=== PATIENT | male | born 1930 | race Asian ===

== ENCOUNTER 2018-03-20 16:02 | Inpatient (IN) | payer BC ==
[~2018-03-20] VITALS: Ht 170.2 cm; Wt 58.1 kg
[2018-03-20] MEDS ORDERED: ATOR20TA38 PO (16:37)
[2018-03-20] MEDS ORDERED: ESCI10TA PO (16:38)
[2018-03-20] MEDS ORDERED: BRIM15DR2 BOTH EYES (16:38)
[2018-03-20] MEDS ORDERED: DORZ10DR6 BOTH EYES (16:38)
[2018-03-20] MEDS ORDERED: CITA20TA8 PO (16:38)
[2018-03-20] MEDS ORDERED: GUAI473L22 PO (16:46)
[2018-03-20] MEDS ORDERED: BYETTA10 SC (16:46)
[2018-03-20] MEDS ORDERED: MTF1000T PO (16:47)
[2018-03-20] MEDS ORDERED: LOSA25TA12 PO (16:47)
[2018-03-20] MEDS ORDERED: IBUP-1542 PO (16:47)
[2018-03-20] MEDS ORDERED: METO-336 PO (16:48)
[2018-03-20] MEDS ORDERED: PANT40TA4 PO (16:48)
[2018-03-20] MEDS ORDERED: MAXZ25 PO (16:49)
[2018-03-20] MEDS ORDERED: TRIA15CR55 TOP (16:49)
[2018-03-20] MEDS ORDERED: ASPIRIN 325 MG TAB PO ONE (18:30)
[2018-03-20] MEDS ORDERED: ONDANSETRON 4 MG INJ IV PRN ×2 (19:00→19:30)
[2018-03-20] MEDS ORDERED: ACETAMINOPHEN 325 MG TAB PO PRN ×2 (19:00→19:30)
[2018-03-20] MEDS ORDERED: NACL 0.9% 3 ML SYG IV SCH (19:30)
[2018-03-20] MEDS ORDERED: SENNA TAB PO PRN (19:30)
--- NOTE | 2018-03-20 19:49 | ERD ---
ER Documentation Chief Complaint Chief Complaint bib ra from home for multiple falls, weak, unable to communicate properly HPI Patient is a 87-year-old male with previous stroke, hypertension, and diabetes who presents with altered mental status. Please note the history and physical exam is limited secondary to the patient's mental status at this time. The patient was brought in by ambulance. The patient was "lethargic" per the . The patient has no focal weakness. Sugar was 252 by paramedics. The patient had a fall just 4 days ago and then fell 45 minutes ago as well. He denies pain. He is slow to respond. Upon review of old medical records this is the patient's first visit to the emergency department. ROS All systems reviewed and are negative except as per history of present illness. Medications Home Meds Reported Medications Triamterene/Hctz* (Maxzide (37.5-25)*) 1 Each Tablet, 1 EACH PO DAILY, #30 TAB 03/20/18 Triamcinolone Acetonide* (Kenalog*) 0.1%-15GM Cr, 1 APPLIC TOP BID, #1 TUB 03/20/18 Pantoprazole* (Pantoprazole*) 40 Mg Tablet.dr, 40 MG PO AC BREAKFAST, TAB 03/20/18 Metoprolol Succinate* (Toprol XL*) 100 Mg Tab.sr.24h, 100 MG PO DAILY, #30 TAB 03/20/18 Metformin* (Glucophage*) 1,000 Mg Tablet, 1000 MG PO BID, #60 TAB 03/20/18 Losartan Potassium* (Losartan Potassium*) 25 Mg Tablet, 25 MG PO DAILY, TAB 03/20/18 Ibuprofen* (Ibuprofen*) 600 Mg Tablet, 600 MG PO Q8 PRN for PAIN, TAB 03/20/18 Guaifenesin-Codeine Phosphate* (Guaifenesin* AC Cough Syrup) 473 Ml Liquid, 5-10 ML PO Q4H PRN for COUGH, ML 03/20/18 Exenatide (Byetta) 10 Mcg/0.04 Ml Pen.injctr, 10 MCG SC BID 03/20/18 Escitalopram Oxalate* (Lexapro*) 10 Mg Tablet, 10 MG PO DAILY, #30 TAB 03/20/18 Dorzolamide/Timolol* (Dorzolamide/Timolol*) 10 Ml Drops, 1 DROP BOTH EYES BID, #1 EA 03/20/18 Citalopram Hydrobromide* (Citalopram Hydrobromide*) 20 Mg Tablet, 20 MG PO DAILY, #30 TAB 03/20/18 Brimonidine Tartrate* (Alphagan P*) 0.1%-15 Ml Opht Drops, 1 DROP BOTH EYES DAILY, #1 EA 03/20/18 Atorvastatin Calcium* (Atorvastatin Calcium*) 20 Mg Tablet, 20 MG PO QHS, #30 TAB 03/20/18 Allergies Allergies: Coded Allergies: No Known Allergy (Unverified , 03/20/18) PMhx/Soc Hx Cardiac Disorders: Yes (htn) Hx Psychiatric Problems: Yes (depression) Hx Miscellaneous Medical Probl: Yes (DM) Hx Alcohol Use: No Hx Substance Use: No Hx Tobacco Use: No Smoking Status: Never smoker FmHx Unable to obtain Physical Exam Vitals Vital Signs Date Temp Pulse Resp B/P (MAP) Pulse Ox O2 O2 Flow FiO2 Time Delivery Rate 03/20/18 98.7 71 14 145/61 100 Room Air 16:09 (89) 03/20/18 98.7 67 14 141/65 100 16:09 (90) Physical Exam Const: Mild distress Head: Atraumatic Eyes: Normal Conjunctiva ENT: Normal External Ears, Nose and Mouth. Neck: Full range of motion. No meningismus. Resp: Clear to auscultation bilaterally Cardio: Regular rate and rhythm, no murmurs Abd: Soft, non tender, non distended. Normal bowel sounds Skin: Pale skin Back: No midline or flank tenderness Ext: No cyanosis, or edema Neur: Awake but slow to respond to questions, strength is equal in all 4 extremities Result Diagram: 03/20/18 1625 03/20/18 1625 Results 24 hrs Laboratory Tests Test 03/20/18 16:25 03/20/18 16:26 White Blood Count 5.2 10^3/ul Red Blood Count 4.57 10^6/ul Hemoglobin 10.7 g/dl Hematocrit 34.3 % Mean Corpuscular Volume 75.1 fl Mean Corpuscular Hemoglobin 23.4 pg Mean Corpuscular Hemoglobin Concent 31.2 g/dl Red Cell Distribution Width 17.0 % Platelet Count 291 10^3/UL Mean Platelet Volume 9.5 fl Immature Granulocytes % 0.400 % Neutrophils % 67.6 % Lymphocytes % 19.0 % Monocytes % 8.9 % Eosinophils % 3.3 % Basophils % 0.8 % Nucleated Red Blood Cells % 0.0 /100WBC Immature Granulocytes # 0.020 10^3/ul Neutrophils # 3.5 10^3/ul Lymphocytes # 1.0 10^3/ul Monocytes # 0.5 10^3/ul Eosinophils # 0.2 10^3/ul Basophils # 0.0 10^3/ul Nucleated Red Blood Cells # 0.0 10^3/ul Sodium Level 139 mmol/L Potassium Level 4.3 mmol/L Chloride Level 102 mmol/L Carbon Dioxide Level 31 mmol/L Anion Gap 6 Blood Urea Nitrogen 16 mg/dl Creatinine 0.97 mg/dl Est Glomerular Filtrat Rate mL/min mL/min Glucose Level 211 mg/dl Calcium Level 9.7 mg/dl Troponin I 0.054 ng/ml Ethyl Alcohol Level < 10.0 mg/dl Prothrombin Time 13.0 Sec Prothrombin Time Ratio 1.0 INR International Normalized Ratio 0.97 Activated Partial Thromboplast Time 27.0 Sec Current Medications Medications Dose Sig/Shauna Start Time Status Last (Trade) Ordered Route PRN Stop Time Admin Dose Reason Admin Aspirin 325 mg ONCE ONCE 03/20/18 DC 03/20/18 (Aspirin) PO 18:30 18:44 03/20/18 18:31 Ondansetron 4 mg ER BRIDGE 03/20/18 HCl (Zofran PRN IV 19:00 Inj) NAUSEA AND/OR 03/21/18 VOMITING 18:59 650 mg ER BRIDGE 03/20/18 Acetaminophen PRN PO MILD 19:00 (Tylenol PAIN(1-3)OR 03/21/18 Tab) ELEVATED TEMP 18:59 IV Flush 3 ml PER 03/20/18 (NS 3 ml) PROTOCOL IV 19:30 Ondansetron 4 mg Q6H PRN 03/20/18 HCl (Zofran IV NAUSEA 19:30 Inj) AND/OR VOMITING 650 mg Q6H PRN 03/20/18 Acetaminophen PO PAIN 19:30 (Tylenol LEVEL 1-3 OR Tab) FEVER 40 mg DAILY@06 03/21/18 Pantoprazole PO 06:00 (Protonix Tab) Senna 2 tab BID PRN 03/20/18 UNV (Senokot) PO 19:30 CONSTIPATION 20 mg QHS PO 03/20/18 UNV Atorvastatin 21:00 Calcium (Lipitor) Brimonidine 1 drop DAILY BOTH 03/21/18 UNV Tartrate EYES 09:00 (Alphagan P 0.1%) Citalopram 20 mg DAILY PO 03/21/18 UNV Hydrobromide 09:00 (Celexa) 1 drop BID BOTH 03/20/18 UNV Dorzolamide/ EYES 21:00 Timolol (Cosopt) Metformin 1,000 mg BID PO 03/20/18 UNV HCl 21:00 (Glucophage) Metoprolol 100 mg DAILY PO 03/21/18 UNV Succinate 09:00 (Toprol Xl) 1 tab DAILY PO 03/21/18 UNV Triamterene/H 09:00 CTZ (Maxzide-25) Diagnostic 1 ea AC MEALS AND 03/20/18 UNV Test (Pha) BEDTIME XX 21:00 (Accu-Chek) Procedures/MDM CT brain read by radiology. EKG read by me: Rate/Rhythm: First-degree AV block at a rate of 65 Intervals: Prolonged WA interval Impression: First-degree block without ischemia Patient is an 87-year-old male presents with falls and altered mental status. Laboratory studies were basically normal. CT scan shows no sign of skull fracture or bleed or mass. EKG shows a first-degree block. There is no obvious focal weakness but the patient was given aspirin after he passed a swallow evaluation in case this ends up being an acute stroke. He would be outside the window for TPA given that symptoms started 4 days ago with a fall. The patient will be admitted to the care of Dr. Kumari from the panel team to a telemetry bed. Departure Diagnosis: Primary Impression: Encephalopathy Additional Impression: Fall Encounter type: initial encounter Qualified Codes: W19.XXXA - Unspecified fall, initial encounter Condition: BRINDA Townsend MD Mar 20, 2018 19:49
--- NOTE | 2018-03-20 20:00 | HP ---
Date/Time of Note Date/Time of Note DATE: 03/20/18 TIME: 19:33 Assessment/Plan VTE Prophylaxis Pharmacological prophylaxis: NA/contraindicated Pharm contraindication: low risk/ambulating Lines/Catheters IV Catheter Type (from Nrsg): Saline Lock Assessment/Plan Assessment/Plan Frail 87 yo man history of dementia, depression, CKD, diabetes presents with frequent falls. #Frequent falls - Per history it is unclear if these episodes are associated with syncope. - UA to rule out UTI - Will get MRI (at family's request) to rule out stroke - Otherwise this likely just represents the progressive course of dementia and age-related changes. - Also will consult social work to reach out to patient's caregiver, his , to determine if she is able to take him home or if she is overwhelmed. #Elevated troponin - Not associated with chest pain - Some lateral T wave abnormalities on EKG - Will continue to trend. - In the setting of CKD expect elevated trop. #Diabetes - Low risk of lactic acidosis... will continue home metformin. #CKD III - Cr 0.97 on admission - Renally dose meds, no nephrotoxins. #HTN - Cont home antihypertensives #Dyslipidemia - Cont home statin #PUD - Cont PPI Result Diagram: 03/20/18 1625 03/20/18 1625 HPI/ROS Admit Date/Time Admit Date/Time Mar 20, 2018 Hx of Present Illness Mr. Griffin is an 87 yo man with history of NIDDM, dementia, HTN who presents with frequent falls. History taken per son and [id number] at bedside; patient is confused, disoriented, and slow to answer questions. This morning the patient fell when getting out of bed and was unable to get up, even with his 's help. He didn't lose consciousness or strike his head. The day prior he was very alert and lucid; and ambulating without assistance on his walker. Earlier this week, Wednesday (4 days [employer]) he fell when walking to answer the door; struck his head firmly against the door then slid to the ground. The patient lives at home with his . He has advanced dementia and has very poor function. For the past six months he stays in bed more than half the day. He has urinary incontinence and uses diapers, although usually can ambulate to the bathroom to have bowel movements. He cannot prepare food but can eat food brought to him with no dysphagia to solids or thin liquids. The patient is often confused but has never failed to recognize family members. He cannot dress or bathe himself independently. A home health nurse comes once per week. The son reports that the patient's has reported feeling overwhelmed caring for the patient, but the son is resistant to put the patient in a SNF. There is a signed advance directive in the chart naming his Felecia to be his medical decisionmaker. In the ED, patient arrived afebrile, vital signs stable. Labs unremarkable except for elevated glucose to 200s. CT head with atrophy, nothing acute. EKG has 1st degree AV block and T wave inversion in lateral leads. ROS The patient denies headache, chest pain, palpitations. History is very limited. PMH/Family/Social Past Medical History CKD stage III glaucoma macular degeneration Diabetes Depression Dementia Medications Current Medications Ondansetron HCl (Zofran Inj) 4 mg ER BRIDGE PRN IV NAUSEA AND/OR VOMITING; Start 03/20/18 at 19:00; Stop 03/21/18 at 18:59 Acetaminophen (Tylenol Tab) 650 mg ER BRIDGE PRN PO MILD PAIN(1-3)OR ELEVATED TEMP; Start 03/20/18 at 19:00; Stop 03/21/18 at 18:59 IV Flush (NS 3 ml) 3 ml PER PROTOCOL IV ; Start 03/20/18 at 19:30; Status UNV Ondansetron HCl (Zofran Inj) 4 mg Q6H PRN IV NAUSEA AND/OR VOMITING; Start 03/20/18 at 19:30; Status UNV Acetaminophen (Tylenol Tab) 650 mg Q6H PRN PO PAIN LEVEL 1-3 OR FEVER; Start 03/20/18 at 19:30; Status UNV Pantoprazole (Protonix Tab) 40 mg DAILY@06 PO ; Start 03/21/18 at 06:00; Status UNV Senna (Senokot) 2 tab BID PRN PO CONSTIPATION; Start 03/20/18 at 19:30; Status UNV Coded Allergies: No Known Allergy (Unverified , 03/20/18) Past Surgical History Partial gastrectomy for severe peptic ulcer disease >20 years ago Social History Patient is a former transportation engineer. Alcohol Use: rarely Smoking Status: Never smoker Drug Use: other (son gives him a CBD/THC vape pen for appetite stimulation. This has been for 6 months. ) Exam/Review of Systems Vital Signs Vitals Vital Signs Date Temp Pulse Resp B/P (MAP) Pulse Ox O2 O2 Flow FiO2 Time Delivery Rate 03/20/18 98.7 71 14 145/61 100 Room Air 16:09 (89) Exam Exam Gen: Frail appearing man lying in bed in no acute distress. Eyes: R pupil 1 mm, L pupil 3mm, both nonreactive. EOMI. No scleral icterus. HEENT: Clear oropharynx. Dentures loose. Neck: No lymphadenopathy, no JVD Card: Regular rate and ryhthm, no murmurs Pulm: Clear to auscultation bilaterally Abd: Soft, nontender, nondistended. Ext: No cyanosis/clubbing/edema. No ulcers. Good peripheral pulses. NEURO Orientation: Patient oriented to self, son at bedside, month. Disoriented to location, year, and day. Pupillary changes as above. Poor hearing bilaterally. Otherwise CN2-12 grossly intact. Strength 4/5 throughout. Sensations to light touch intact throughout. SHELIA BRIGGS MD Mar 20, 2018 19:47
[2018-03-20] MEDS ORDERED: GLUCOSE GEL 15 GRAM TUBE BUCCAL PRN (20:30)
[2018-03-20] MEDS ORDERED: GLUCOSE GEL 15 GRAM TUBE PO PRN ×2 (20:30)
[2018-03-20] MEDS ORDERED: DEXTROSE 50% 50 ML SYRINGE IV PRN ×2 (20:30)
[2018-03-20] MEDS ORDERED: GLUCAGON 1 MG INJ IM PRN (20:30)
[2018-03-20 20:36] VITALS: PULSE 72
[2018-03-20 21:00] VITALS: Ht 170.2 cm; Wt 58.1 kg
[2018-03-20] MEDS: ACCU-CHEK XX SCH (21:00)
[2018-03-20 21:20] VITALS: BP 172/75; PULSE 63; RESP 18
[2018-03-20] MEDS ORDERED: hydrALAzine 20 MG INJ IV PRN (21:30)
[2018-03-20] MEDS: ATORVASTATIN 20 MG TAB PO SCH (21:52)
[2018-03-20] MEDS: DORZOLAMIDE/TIMOLOL 10 ML OPH BOTH EYES SCH (21:52)
[2018-03-20 23:00] VITALS: BP 143/65; PULSE 78; RESP 18
[2018-03-21] VITALS (11 sets, daily range): BP systolic 116–157; BP diastolic 60–73; PULSE 63–81; RESP 16–18
[2018-03-21] MEDS: PANTOPRAZOLE (EC) 40 MG TAB PO SCH (05:25)
[2018-03-21] MEDS: ACCU-CHEK XX SCH ×4 (07:40→21:00)
[2018-03-21] MEDS: metFORMIN 500 MG TAB PO SCH ×2 (07:55→17:18)
[2018-03-21] MEDS: CITALOPRAM 20 MG TAB PO SCH (08:08)
[2018-03-21] MEDS: METOPROLOL (XL) 100 MG TAB PO SCH (08:09)
[2018-03-21] MEDS: TRIAMTERENE/HCTZ (37.5/25) TAB PO SCH (08:10)
[2018-03-21] MEDS: BRIMONIDINE 0.1% 5 ML OPH BOTH EYES SCH (08:11)
[2018-03-21] MEDS: DORZOLAMIDE/TIMOLOL 10 ML OPH BOTH EYES SCH ×2 (08:11→22:24)
[2018-03-21] MEDS: MEMANTINE 5 MG TAB PO SCH (13:54)
[2018-03-21] MEDS: DONEPEZIL 5 MG TAB PO SCH (13:54)
--- NOTE | 2018-03-21 16:30 | PN ---
Date/Time of Note Date/Time of Note DATE: 03/21/18 TIME: 16:24 Assessment/Plan VTE Prophylaxis [place] [facility] [place]: 4 SCD applied [place] [facility] [place] Yes Pharmacological prophylaxis: NA/contraindicated Pharm contraindication: other Lines/Catheters [facility] Saline Lock Urinary Cath still in place: No Assessment/Plan Assessment/Plan #Frequent falls likely secondary to progressive dementia - Per history it appears that falls are not associated with syncope -No evidence of infection -Follow-up on MRI of the brain -Rehab evaluation #Progressive dementia -Patient has no formal diagnosis of dementia but based on history and progressive symptoms patient does have evidence of dementia -Start Namenda and Aricept #Urinary incontinence likely secondary to dementia -Urology consultation obtained -Ultrasound of the kidneys and bladder scan for PVR #Elevated troponin-stable - Not associated with chest pain - Some lateral T wave abnormalities on EKG - In the setting of CKD expect elevated trop. #Diabetes - Low risk of lactic acidosis... will continue home metformin. #CKD III - Cr 0.97 on admission - Renally dose meds, no nephrotoxins. #HTN - Cont home antihypertensives #Dyslipidemia - Cont home statin #PUD - Cont PPI Prophylaxis: SCDs DC planning: Anticipate DC to inpatient rehab in 1-2 days Result Diagram: 03/21/18 0509 03/21/18 0510 Results 24hrs Laboratory Tests Test 03/20/18 16:25 03/20/18 16:26 03/20/18 21:50 03/20/18 22:04 White Blood 5.2 Count Red Blood Count 4.57 L Hemoglobin 10.7 L Hematocrit 34.3 L Mean Corpuscular 75.1 L Volume Mean Corpuscular 23.4 L Hemoglobin Mean Corpuscular 31.2 L Hemoglobin Natalia nt Red Cell 17.0 H Distribution Width Platelet Count 291 Mean Platelet 9.5 Volume Immature 0.400 Granulocytes % Neutrophils % 67.6 Lymphocytes % 19.0 Monocytes % 8.9 Eosinophils % 3.3 Basophils % 0.8 Nucleated Red 0.0 Blood Cells % Immature 0.020 Granulocytes # Neutrophils # 3.5 Lymphocytes # 1.0 Monocytes # 0.5 Eosinophils # 0.2 Basophils # 0.0 Nucleated Red 0.0 Blood Cells # Sodium Level 139 Potassium Level 4.3 Chloride Level 102 Carbon Dioxide 31 Level Anion Gap 6 Blood Urea 16 Nitrogen Creatinine 0.97 Est Glomerular Filtrat Rate mL/min Glucose Level 211 Calcium Level 9.7 Troponin I 0.054 0.064 Ethyl Alcohol < 10.0 H Level Prothrombin Time 13.0 Prothrombin Time 1.0 Ratio INR 0.97 International Normalized Ratio Activated 27.0 Partial Thrombop last Time Bedside Glucose 181 Test 03/21/18 05:09 03/21/18 05:10 03/21/18 07:36 03/21/18 11:26 White Blood 6.0 Count Red Blood Count 4.56 L Hemoglobin 10.7 L Hematocrit 33.5 L Mean Corpuscular 73.5 L Volume Mean Corpuscular 23.5 L Hemoglobin Mean Corpuscular 31.9 L Hemoglobin Natalia nt Red Cell 17.2 H Distribution Width Platelet Count 272 Mean Platelet 9.7 Volume Immature 0.300 Granulocytes % Neutrophils % 68.1 Lymphocytes % 19.3 Monocytes % 8.7 Eosinophils % 2.8 Basophils % 0.8 Nucleated Red 0.0 Blood Cells % Immature 0.020 Granulocytes # Neutrophils # 4.1 Lymphocytes # 1.2 Monocytes # 0.5 Eosinophils # 0.2 Basophils # 0.1 Nucleated Red 0.0 Blood Cells # Hemoglobin A1c 9.9 H Sodium Level 143 Potassium Level 4.1 Chloride Level 102 Carbon Dioxide 33 H Level Anion Gap 8 Blood Urea 17 Nitrogen Creatinine 0.92 Est Glomerular Filtrat Rate mL/min Glucose Level 224 H Calcium Level 9.5 Phosphorus Level 3.6 Magnesium Level 2.0 Total Bilirubin 0.3 Direct Bilirubin 0.00 Indirect 0.3 Bilirubin Aspartate Amino 18 Transf (AST/SGOT ) Alanine 24 Aminotransferase (ALT/SGPT) Alkaline 91 Phosphatase Troponin I 0.065 Total Protein 6.2 Albumin 3.7 Globulin 2.50 Albumin/Globulin 1.48 Ratio Triglycerides 161 H Level Cholesterol 163 Level LDL Cholesterol, 83 Calculated HDL Cholesterol 48 Cholesterol/HDL 3.3 Ratio Thyroid 1.650 Stimulating Hormone (TSH) Bedside Glucose 224 H 192 Subjective 24 Hr Interval Summary Constitutional: no complaints Exam/Review of Systems Vital Signs Vitals Vital Signs Date Temp Pulse Resp B/P (MAP) Pulse Ox O2 O2 Flow FiO2 Time Delivery Rate 03/21/18 98.9 64 16 116/64 97 15:27 (81) 03/21/18 Room Air 04:04 Intake and Output 03/20/18 03/20/1818 1414:59 22:59 06:59 IntakeIntake Total 300 ml OutputOutput Total 700 ml BalanceBalance -400 ml Exam Constitutional: alert Respiratory: clear to auscultation Cardiovascular: regular rate and rhythm Gastrointestinal: soft; No distended Musculoskeletal: nl extremities to inspection Medications Medications Current Medications IV Flush (NS 3 ml) 3 ml PER PROTOCOL IV ; Start 03/20/18 at 19:30 Ondansetron HCl (Zofran Inj) 4 mg Q6H PRN IV NAUSEA AND/OR VOMITING; Start 03/20/18 at 19:30 Acetaminophen (Tylenol Tab) 650 mg Q6H PRN PO PAIN LEVEL 1-3 OR FEVER; Start 03/20/18 at 19:30 Pantoprazole (Protonix Tab) 40 mg DAILY@06 PO Last administered on 03/21/18at 05:25; Admin Dose 40 MG; Start 03/21/18 at 06:00 Senna (Senokot) 2 tab BID PRN PO CONSTIPATION; Start 03/20/18 at 19:30 Atorvastatin Calcium (Lipitor) 20 mg QHS PO Last administered on 03/20/18at 21:52; Admin Dose 20 MG; Start 03/20/18 at 21:00 Brimonidine Tartrate (Alphagan P 0.1%) 1 drop DAILY BOTH EYES Last administered on 03/21/18at 08:11; Admin Dose 1 DROP; Start 03/21/18 at 09:00 Citalopram Hydrobromide (Celexa) 20 mg DAILY PO Last administered on 03/21/18at 08:08; Admin Dose 20 MG; Start 03/21/18 at 09:00 Dorzolamide/ Timolol (Cosopt) 1 drop BID BOTH EYES Last administered on 03/21/18at 08:11; Admin Dose 1 DROP; Start 03/20/18 at 21:00 Metformin HCl (Glucophage) 1,000 mg BID WITH MEALS PO Last administered on 03/21/18at 07:55; Admin Dose 1,000 MG; Start 03/21/18 at 08:00 Metoprolol Succinate (Toprol Xl) 100 mg DAILY PO Last administered on 03/21/18at 08:09; Admin Dose 100 MG; Start 03/21/18 at 09:00 Triamterene/HCTZ (Maxzide-25) 1 tab DAILY PO Last administered on 03/21/18at 08:10; Admin Dose 1 TAB; Start 03/21/18 at 09:00 Diagnostic Test (Pha) (Accu-Chek) 1 ea AC MEALS AND BEDTIME XX Last administered on 03/21/18at 11:32; Admin Dose 1 EA; Start 03/20/18 at 21:00 Miscellaneous Information 1 ea NOTE XX ; Start 03/20/18 at 20:30 Glucose (Glutose) 15 gm Q15M PRN PO DECREASED GLUCOSE; Start 03/20/18 at 20:30 Glucose (Glutose) 22.5 gm Q15M PRN PO DECREASED GLUCOSE; Start 03/20/18 at 20:30 Dextrose (D50w Syringe) 25 ml Q15M PRN IV DECREASED GLUCOSE; Start 03/20/18 at 20:30 Dextrose (D50w Syringe) 50 ml Q15M PRN IV DECREASED GLUCOSE; Start 03/20/18 at 20:30 Glucagon (Glucagen) 1 mg Q15M PRN IM DECREASED GLUCOSE; Start 03/20/18 at 20:30 Glucose (Glutose) 15 gm Q15M PRN BUCCAL DECREASED GLUCOSE; Start 03/20/18 at 20:30 Hydralazine HCl (Apresoline) 5 mg Q4H PRN IV ELEVATED BLOOD PRESSURE Last administered on 03/20/18at 21:52; Admin Dose 5 MG; Start 03/20/18 at 21:30 Donepezil HCl (Aricept) 5 mg DAILY PO Last administered on 03/21/18at 13:54; Admin Dose 5 MG; Start 03/21/18 at 13:30 Memantine (Namenda) 5 mg DAILY PO Last administered on 03/21/18at 13:54; Admin Dose 5 MG; Start 03/21/18 at 13:30 BRENTON GAYLE Mar 21, 2018 16:30
--- NOTE | 2018-03-21 18:23 | CONS ---
Date/Time of Note Date/Time of Note DATE: 03/21/18 TIME: 18:13 Assessment/Plan Assessment/Plan Assessment/Plan 87 year old male fell when getting out of bed and was unable to get up, even with his 's help. He didn't lose consciousness or strike his head. The day prior to admission he was very alert and lucid; and ambulating without assistance using his walker.Last Wednesday (4 days [employer]) he fell when walking to answer the door; struck his head firmly against the door then slid to the ground. He lives at home with his . He has advanced dementia and has very poor function. For the past six months he has been staying in bed more than half the day. He has urinary incontinence and uses diapers, he does have nocturia about 3-4 times and tries to use a urinal at home but sometimes the urine comes out before he could use the urinal. During the day he urinates every 3 hours and he tries to hold his urine. He denies any dysuria and there is no hematuria. Although usually can ambulate to the bathroom to have bowel movements. The patient is often confused but has never failed to recognize family members. He cannot dress or bathe himself independently. A home health nurse comes once per week. The son reports that the patient's has reported feeling overwhelmed caring for the patient, but the son is resistant to put the patient in a SNF. A urology consult was requested because of the urinary incontinence. Impression: Urinary urgency and urgency incontinence. Prostate is not large. The incontinence is probably related to him not using the urinal all the time and that could be related to his dementia. We will check the ultrasound of the kidney and pelvic ultrasound to make sure there is no urinary retention or overflow incontinence. Result Diagram: 03/21/18 0509 03/21/18 0510 Results 24hrs Laboratory Tests Test 03/20/18 21:50 03/20/18 22:04 03/21/18 05:05 03/21/18 05:09 Bedside Glucose 181 Troponin I 0.064 Iron Level 29 L Total Iron 379 Binding Capacity Percent Iron 8 L Saturation White Blood 6.0 Count Red Blood Count 4.56 L Hemoglobin 10.7 L Hematocrit 33.5 L Mean Corpuscular 73.5 L Volume Mean Corpuscular 23.5 L Hemoglobin Mean Corpuscular 31.9 L Hemoglobin Natalia nt Red Cell 17.2 H Distribution Width Platelet Count 272 Mean Platelet 9.7 Volume Immature 0.300 Granulocytes % Neutrophils % 68.1 Lymphocytes % 19.3 Monocytes % 8.7 Eosinophils % 2.8 Basophils % 0.8 Nucleated Red 0.0 Blood Cells % Immature 0.020 Granulocytes # Neutrophils # 4.1 Lymphocytes # 1.2 Monocytes # 0.5 Eosinophils # 0.2 Basophils # 0.1 Nucleated Red 0.0 Blood Cells # Hemoglobin A1c 9.9 H Test 03/21/18 05:10 03/21/18 07:36 03/21/18 11:26 03/21/18 17:16 Sodium Level 143 Potassium Level 4.1 Chloride Level 102 Carbon Dioxide 33 H Level Anion Gap 8 Blood Urea 17 Nitrogen Creatinine 0.92 Est Glomerular Filtrat Rate mL/min Glucose Level 224 H Calcium Level 9.5 Phosphorus Level 3.6 Magnesium Level 2.0 Total Bilirubin 0.3 Direct Bilirubin 0.00 Indirect 0.3 Bilirubin Aspartate Amino 18 Transf (AST/SGOT ) Alanine 24 Aminotransferase (ALT/SGPT) Alkaline 91 Phosphatase Troponin I 0.065 Total Protein 6.2 Albumin 3.7 Globulin 2.50 Albumin/Globulin 1.48 Ratio Triglycerides 161 H Level Cholesterol 163 Level LDL Cholesterol, 83 Calculated HDL Cholesterol 48 Cholesterol/HDL 3.3 Ratio Thyroid 1.650 Stimulating Hormone (TSH) Bedside Glucose 224 H 192 146 Consultation Date/Type/Reason Admit Date/Time Mar 20, 2018 Date of Consultation: Mar 21, 2018 Type of Consult Urology Reason for Consultation Urinary incontinence Requesting Provider: BRENTON GAYLE of Present Illness 87 year old male fell when getting out of bed and was unable to get up, even with his 's help. He didn't lose consciousness or strike his head. The day prior to admission he was very alert and lucid; and ambulating without assistance using his walker.Last Wednesday (4 days [employer]) he fell when walking to answer the door; struck his head firmly against the door then slid to the ground. He lives at home with his . He has advanced dementia and has very poor function. For the past six months he has been staying in bed more than half the day. He has urinary incontinence and uses diapers, he does have nocturia about 3-4 times and tries to use a urinal at home but sometimes the urine comes out before he could use the urinal. During the day he urinates every 3 hours and he tries to hold his urine. He denies any dysuria and there is no hematuria. Although usually can ambulate to the bathroom to have bowel movements. The patient is often confused but has never failed to recognize family members. He cannot dress or bathe himself independently. A home health nurse comes once per week. The son reports that the patient's has reported feeling overwhelmed caring for the patient, but the son is resistant to put the patient in a SNF. A urology consult was requested because of the urinary incontinence. Constitutional: other (Patient is awake, slow responding to questions and weak) Eyes: no complaints ENT: no complaints Respiratory: no complaints Cardiovascular: No chest pain Gastrointestinal: no complaints Genitourinary: other (As per history of present illness. Urinary incontinence) Musculoskeletal: other (Generalized weakness) Skin: no complaints Neurologic: no complaints Psychological: other (Dementia) Past Medical History Medical History: diabetes, high cholesterol, hypertension, peptic ulcer disea se, renal disease Medications Current Medications IV Flush (NS 3 ml) 3 ml PER PROTOCOL IV ; Start 03/20/18 at 19:30 Ondansetron HCl (Zofran Inj) 4 mg Q6H PRN IV NAUSEA AND/OR VOMITING; Start 03/20/18 at 19:30 Acetaminophen (Tylenol Tab) 650 mg Q6H PRN PO PAIN LEVEL 1-3 OR FEVER; Start 03/20/18 at 19:30 Pantoprazole (Protonix Tab) 40 mg DAILY@06 PO Last administered on 03/21/18at 05:25; Admin Dose 40 MG; Start 03/21/18 at 06:00 Senna (Senokot) 2 tab BID PRN PO CONSTIPATION; Start 03/20/18 at 19:30 Atorvastatin Calcium (Lipitor) 20 mg QHS PO Last administered on 03/20/18at 21:52; Admin Dose 20 MG; Start 03/20/18 at 21:00 Brimonidine Tartrate (Alphagan P 0.1%) 1 drop DAILY BOTH EYES Last administered on 03/21/18at 08:11; Admin Dose 1 DROP; Start 03/21/18 at 09:00 Citalopram Hydrobromide (Celexa) 20 mg DAILY PO Last administered on 03/21/18at 08:08; Admin Dose 20 MG; Start 03/21/18 at 09:00 Dorzolamide/ Timolol (Cosopt) 1 drop BID BOTH EYES Last administered on 03/21/18at 08:11; Admin Dose 1 DROP; Start 03/20/18 at 21:00 Metformin HCl (Glucophage) 1,000 mg BID WITH MEALS PO Last administered on 03/21/18at 17:18; Admin Dose 1,000 MG; Start 03/21/18 at 08:00 Metoprolol Succinate (Toprol Xl) 100 mg DAILY PO Last administered on 03/21/18at 08:09; Admin Dose 100 MG; Start 03/21/18 at 09:00 Triamterene/HCTZ (Maxzide-25) 1 tab DAILY PO Last administered on 03/21/18at 08:10; Admin Dose 1 TAB; Start 03/21/18 at 09:00 Diagnostic Test (Pha) (Accu-Chek) 1 ea AC MEALS AND BEDTIME XX Last administered on 03/21/18at 17:18; Admin Dose 1 EA; Start 03/20/18 at 21:00 Miscellaneous Information 1 ea NOTE XX ; Start 03/20/18 at 20:30 Glucose (Glutose) 15 gm Q15M PRN PO DECREASED GLUCOSE; Start 03/20/18 at 20:30 Glucose (Glutose) 22.5 gm Q15M PRN PO DECREASED GLUCOSE; Start 03/20/18 at 20:30 Dextrose (D50w Syringe) 25 ml Q15M PRN IV DECREASED GLUCOSE; Start 03/20/18 at 20:30 Dextrose (D50w Syringe) 50 ml Q15M PRN IV DECREASED GLUCOSE; Start 03/20/18 at 20:30 Glucagon (Glucagen) 1 mg Q15M PRN IM DECREASED GLUCOSE; Start 03/20/18 at 20:30 Glucose (Glutose) 15 gm Q15M PRN BUCCAL DECREASED GLUCOSE; Start 03/20/18 at 20:30 Hydralazine HCl (Apresoline) 5 mg Q4H PRN IV ELEVATED BLOOD PRESSURE Last administered on 03/20/18at 21:52; Admin Dose 5 MG; Start 03/20/18 at 21:30 Donepezil HCl (Aricept) 5 mg DAILY PO Last administered on 03/21/18at 13:54; Admin Dose 5 MG; Start 03/21/18 at 13:30 Memantine (Namenda) 5 mg DAILY PO Last administered on 03/21/18at 13:54; Admin Dose 5 MG; Start 03/21/18 at 13:30 Allergies: Coded Allergies: No Known Allergy (Unverified , 03/20/18) Past Surgical History Past Surgical Hx: other (Subtotal gastrectomy for ulcer disease) Social History Alcohol Use: rarely Smoking Status: Former smoker Drug Use: none, other (son gives him a CBD/THC vape pen for appetite stimulation. This has been for 6 months. ) Exam/Review of Systems Vital Signs Vitals Vital Signs Date Temp Pulse Resp B/P (MAP) Pulse Ox O2 O2 Flow FiO2 Time Delivery Rate 03/21/18 63 16:00 03/21/18 98.9 16 116/64 97 15:27 (81) 03/21/18 Room Air 04:04 Intake and Output 03/20/18 03/20/18 03/21/18 1515:00 23:00 07:00 IntakeIntake Total 300 ml OutputOutput Total 700 ml BalanceBalance -400 ml Exam Constitutional: alert Psych: no complaints Head: normocephalic Eyes: nl conjunctiva ENMT: nl external ears & nose Neck: supple Respiratory: normal air movement Cardiovascular: No jugular venous distention (JVD) Gastrointestinal: soft, surgical scars Genitourinary - Male: nl penis, nl scrotum, other (Rectal exam: Prostate small and soft. Patient is constipated); No CVA tenderness Musculoskeletal: nl extremities to inspection Extremities: No calf tenderness Neurological: other (Generalized weakness and slow speech) Skin: nl turgor Lymph: nl lymph nodes Medications Medications Current Medications IV Flush (NS 3 ml) 3 ml PER PROTOCOL IV ; Start 03/20/18 at 19:30 Ondansetron HCl (Zofran Inj) 4 mg Q6H PRN IV NAUSEA AND/OR VOMITING; Start 03/20/18 at 19:30 Acetaminophen (Tylenol Tab) 650 mg Q6H PRN PO PAIN LEVEL 1-3 OR FEVER; Start 03/20/18 at 19:30 Pantoprazole (Protonix Tab) 40 mg DAILY@06 PO Last administered on 03/21/18at 05:25; Admin Dose 40 MG; Start 03/21/18 at 06:00 Senna (Senokot) 2 tab BID PRN PO CONSTIPATION; Start 03/20/18 at 19:30 Atorvastatin Calcium (Lipitor) 20 mg QHS PO Last administered on 03/20/18at 21:52; Admin Dose 20 MG; Start 03/20/18 at 21:00 Brimonidine Tartrate (Alphagan P 0.1%) 1 drop DAILY BOTH EYES Last administered on 03/21/18at 08:11; Admin Dose 1 DROP; Start 03/21/18 at 09:00 Citalopram Hydrobromide (Celexa) 20 mg DAILY PO Last administered on 03/21/18at 08:08; Admin Dose 20 MG; Start 03/21/18 at 09:00 Dorzolamide/ Timolol (Cosopt) 1 drop BID BOTH EYES Last administered on 03/21at 08:11; Admin Dose 1 DROP; Start 03/20/18 at 21:00 Metformin HCl (Glucophage) 1,000 mg BID WITH MEALS PO Last administered on 03/21/18at 17:18; Admin Dose 1,000 MG; Start 03/21/18 at 08:00 Metoprolol Succinate (Toprol Xl) 100 mg DAILY PO Last administered on 03/21/18at 08:09; Admin Dose 100 MG; Start 03/21/18 at 09:00 Triamterene/HCTZ (Maxzide-25) 1 tab DAILY PO Last administered on 03/21/18at 08:10; Admin Dose 1 TAB; Start 03/21/18 at 09:00 Diagnostic Test (Pha) (Accu-Chek) 1 ea AC MEALS AND BEDTIME XX Last administered on 03/21/18at 17:18; Admin Dose 1 EA; Start 03/20/18 at 21:00 Miscellaneous Information 1 ea NOTE XX ; Start 03/20/18 at 20:30 Glucose (Glutose) 15 gm Q15M PRN PO DECREASED GLUCOSE; Start 03/20/18 at 20:30 Glucose (Glutose) 22.5 gm Q15M PRN PO DECREASED GLUCOSE; Start 03/20/18 at 20:30 Dextrose (D50w Syringe) 25 ml Q15M PRN IV DECREASED GLUCOSE; Start 03/20/18 at 20:30 Dextrose (D50w Syringe) 50 ml Q15M PRN IV DECREASED GLUCOSE; Start 03/20/18 at 20:30 Glucagon (Glucagen) 1 mg Q15M PRN IM DECREASED GLUCOSE; Start 03/20/18 at 20:30 Glucose (Glutose) 15 gm Q15M PRN BUCCAL DECREASED GLUCOSE; Start 03/20/18 at 20:30 Hydralazine HCl (Apresoline) 5 mg Q4H PRN IV ELEVATED BLOOD PRESSURE Last administered on 03/20/18at 21:52; Admin Dose 5 MG; Start 03/20/18 at 21:30 Donepezil HCl (Aricept) 5 mg DAILY PO Last administered on 03/21/18at 13:54; Admin Dose 5 MG; Start 03/21/18 at 13:30 Memantine (Namenda) 5 mg DAILY PO Last administered on 03/21/18at 13:54; Admin Dose 5 MG; Start 03/21/18 at 13:30 JERRELL FRANCO MD Mar 21, 2018 18:23
[2018-03-21] MEDS: ATORVASTATIN 20 MG TAB PO SCH (22:23)
[2018-03-22] VITALS (12 sets, daily range): BP systolic 110–151; BP diastolic 56–68; PULSE 57–78; RESP 18–22
[2018-03-22] MEDS: PANTOPRAZOLE (EC) 40 MG TAB PO SCH (05:38)
[2018-03-22] MEDS: ACCU-CHEK XX SCH ×4 (07:51→21:00)
[2018-03-22] MEDS: metFORMIN 500 MG TAB PO SCH ×2 (07:53→17:04)
[2018-03-22] MEDS: MEMANTINE 5 MG TAB PO SCH (08:10)
[2018-03-22] MEDS: DONEPEZIL 5 MG TAB PO SCH (08:10)
[2018-03-22] MEDS: CITALOPRAM 20 MG TAB PO SCH (08:11)
[2018-03-22] MEDS: BRIMONIDINE 0.1% 5 ML OPH BOTH EYES SCH (08:12)
[2018-03-22] MEDS: DORZOLAMIDE/TIMOLOL 10 ML OPH BOTH EYES SCH ×2 (08:12→20:59)
[2018-03-22] MEDS: TRIAMTERENE/HCTZ (37.5/25) TAB PO SCH (08:14)
[2018-03-22] MEDS: METOPROLOL (XL) 100 MG TAB PO SCH (08:14)
--- NOTE | 2018-03-22 08:43 | CONS ---
Date/Time of Note Date/Time of Note DATE: 03/22/18 TIME: 08:39 Consult Date/Type/Reason Admit Date/Time Mar 20, 2018 at 18:46 Initial Consult Date 03/21/18 Type of Consultation: Urology Reason for Consultation Urinary incontinence Requesting Provider: BRENTON GAYLE Subjective Patient is awake and comfortable Objective Vital Signs Date Temp Pulse Resp B/P (MAP) Pulse Ox O2 O2 Flow FiO2 Time Delivery Rate 03/22/18 60 08:00 03/22/18 97.5 20 151/68 96 Room Air 07:15 (95) Intake and Output 03/21/18 03/21/18 03/22/18 1414:59 22:59 06:59 IntakeIntake Total 600 ml OutputOutput Total 300 ml BalanceBalance 300 ml Exam The bed is wet and he does not remember that he wet the bed. The urinal is at his bedside but it does not look he is using it. Results/Medications Result Diagram: 03/21/18 0509 03/21/18 0510 Results 24 hrs Laboratory Tests Test 03/21/18 11:26 03/21/18 17:16 03/21/18 22:22 03/22/18 07:38 Bedside Glucose 192 146 278 H 265 H Medications Current Medications IV Flush (NS 3 ml) 3 ml PER PROTOCOL IV ; Start 03/20/18 at 19:30 Ondansetron HCl (Zofran Inj) 4 mg Q6H PRN IV NAUSEA AND/OR VOMITING; Start 03/20/18 at 19:30 Acetaminophen (Tylenol Tab) 650 mg Q6H PRN PO PAIN LEVEL 1-3 OR FEVER; Start 03/20/18 at 19:30 Pantoprazole (Protonix Tab) 40 mg DAILY@06 PO Last administered on 03/22/18at 05:38; Admin Dose 40 MG; Start 03/21/18 at 06:00 Senna (Senokot) 2 tab BID PRN PO CONSTIPATION; Start 03/20/18 at 19:30 Atorvastatin Calcium (Lipitor) 20 mg QHS PO Last administered on 03/21/18at 22:23; Admin Dose 20 MG; Start 03/20/18 at 21:00 Brimonidine Tartrate (Alphagan P 0.1%) 1 drop DAILY BOTH EYES Last administered on 03/22/18at 08:12; Admin Dose 1 DROP; Start 03/21/18 at 09:00 Citalopram Hydrobromide (Celexa) 20 mg DAILY PO Last administered on 03/22/18 08:11; Admin Dose 20 MG; Start 03/21/18 at 09:00 Dorzolamide/ Timolol (Cosopt) 1 drop BID BOTH EYES Last administered on 03/22/18 08:12; Admin Dose 1 DROP; Start 03/20/18 at 21:00 Metformin HCl (Glucophage) 1,000 mg BID WITH MEALS PO Last administered on 03/22/18 07:53; Admin Dose 1,000 MG; Start 03/21/18 at 08:00 Metoprolol Succinate (Toprol Xl) 100 mg DAILY PO Last administered on 03/21/18at 08:09; Admin Dose 100 MG; Start 03/21/18 at 09:00 Triamterene/HCTZ (Maxzide-25) 1 tab DAILY PO Last administered on 03/22/18 08:14; Admin Dose 1 TAB; Start 03/21/18 at 09:00 Diagnostic Test (Pha) (Accu-Chek) 1 ea AC MEALS AND BEDTIME XX Last administered on 03/22/18 07:51; Admin Dose 1 EA; Start 03/20/18 at 21:00 Miscellaneous Information 1 ea NOTE XX ; Start 03/20/18 at 20:30 Glucose (Glutose) 15 gm Q15M PRN PO DECREASED GLUCOSE; Start 03/20/18 at 20:30 Glucose (Glutose) 22.5 gm Q15M PRN PO DECREASED GLUCOSE; Start 03/20/18 at 20:30 Dextrose (D50w Syringe) 25 ml Q15M PRN IV DECREASED GLUCOSE; Start 03/20/18 at 20:30 Dextrose (D50w Syringe) 50 ml Q15M PRN IV DECREASED GLUCOSE; Start 03/20/18 at 20:30 Glucagon (Glucagen) 1 mg Q15M PRN IM DECREASED GLUCOSE; Start 03/20/18 at 20:30 Glucose (Glutose) 15 gm Q15M PRN BUCCAL DECREASED GLUCOSE; Start 03/20/18 at 20:30 Hydralazine HCl (Apresoline) 5 mg Q4H PRN IV ELEVATED BLOOD PRESSURE Last administered on 03/20/18at 21:52; Admin Dose 5 MG; Start 03/20/18 at 21:30 Donepezil HCl (Aricept) 5 mg DAILY PO Last administered on 03/22/18at 08:10; Admin Dose 5 MG; Start 03/21/18 at 13:30 Memantine (Namenda) 5 mg DAILY PO Last administered on 03/22/18 08:10; Admin Dose 5 MG; Start 03/21/18 at 13:30 Assessment/Plan Chief Complaint/Hosp Course 87 year old male fell when getting out of bed and was unable to get up, even with his 's help. He didn't lose consciousness or strike his head. The day p rior to admission he was very alert and lucid; and ambulating without assistance using his walker.Last Wednesday (4 days [employer]) he fell when walking to answer the door; struck his head firmly against the door then slid to the ground. He lives at home with his . He has advanced dementia and has very poor function. For the past six months he has been staying in bed more than half the day. He has urinary incontinence and uses diapers, he does have nocturia about 3-4 times and tries to use a urinal at home but sometimes the urine comes out before he could use the urinal. During the day he urinates every 3 hours and he tries to hold his urine. He denies any dysuria and there is no hematuria. Although usually can ambulate to the bathroom to have bowel movements. The patient is often confused but has never failed to recognize family members. He cannot dress or bathe himself independently. A home health nurse comes once per week. The son reports that the patient's has reported feeling overwhelmed caring for the patient, but the son is resistant to put the patient in a SNF. A urology consult was requested because of the urinary incontinence. The patient does have urinary urgency incontinence. The renal and pelvic ultrasound shows that there is no urinary retention and his postvoid residual is small and the prostate size is small. Therefore his problem is more of urgency incontinence that may be related to his dementia. Recommend: Reminded him and encouraged him to use the urinal. One could try to use oxybutynin or Vesicare or Detrol LA but these are going to cause him constipation and could cause retention as well. Therefore for now just encourage him to use the urinal and if needed use diapers. JERRELL FRANCO MD Mar 22, 2018 08:43
--- NOTE | 2018-03-22 10:40 | PN ---
Date/Time of Note Date/Time of Note DATE: 03/22/18 TIME: 10:37 Assessment/Plan VTE Prophylaxis Risk score (from Ns)>0 risk: 5 SCD applied (from Ns): Yes Pharmacological prophylaxis: NA/contraindicated Pharm contraindication: renal impairment Lines/Catheters IV [facility]from [facility] Urinary Cath still in place: No Assessment/Plan Hospital Course #Frequent falls likely secondary to progressive dementia -Per history it appears that falls are not associated with syncope -No evidence of infection -MRI brain shows no acute findings, volume loss is noted -Rehab evaluation appreciated #Progressive dementia -Patient has no formal diagnosis of dementia but based on history and progressive symptoms patient does have evidence of dementia -Started Namenda and Aricept #Urinary incontinence secondary to dementia -Urology consultation appreciated, no indication for medications at this time -Ultrasound of the kidneys show no hydronephrosis or prostamegaly and PVR is within normal limits -Continue diapers #Elevated troponin-stable - Not associated with chest pain - Some lateral T wave abnormalities on EKG - In the setting of CKD expect elevated trop. #Diabetes - Low risk of lactic acidosis... will continue home metformin. #CKD III - Cr 0.97 on admission - Renally dose meds, no nephrotoxins. #HTN - Cont home antihypertensives #Dyslipidemia - Cont home statin #PUD - Cont PPI Prophylaxis: SCDs DC planning: Anticipate DC to inpatient rehab in 1-2 days, currently pending approval by insurance Result Diagram: 03/21/18 0509 03/21/18 0510 Results 24hrs Laboratory Tests Test 03/21/18 11:26 03/21/18 17:16 03/21/18 22:22 03/22/18 07:38 Bedside Glucose 192 146 278 H 265 H Subjective 24 Hr Interval Summary Constitutional: no complaints Exam/Review of Systems Vital Signs Vitals Vital Signs Date Temp Pulse Resp B/P (MAP) Pulse Ox O2 O2 Flow FiO2 Time Delivery Rate 03/22/18 60 08:00 03/22/18 97.5 20 151/68 96 Room Air 07:15 (95) Intake and Output 03/21/18 03/21/18 03/22/18 1515:00 23:00 07:00 IntakeIntake Total 600 ml OutputOutput Total 300 ml BalanceBalance 300 ml Exam Constitutional: alert, oriented Respiratory: clear to auscultation Cardiovascular: regular rate and rhythm Gastrointestinal: soft; No distended Musculoskeletal: nl extremities to inspection Medications Medications Current Medications IV Flush (NS 3 ml) 3 ml PER PROTOCOL IV ; Start 03/20/18 at 19:30 Ondansetron HCl (Zofran Inj) 4 mg Q6H PRN IV NAUSEA AND/OR VOMITING; Start 03/20/18 at 19:30 Acetaminophen (Tylenol Tab) 650 mg Q6H PRN PO PAIN LEVEL 1-3 OR FEVER; Start 03/20/18 at 19:30 Pantoprazole (Protonix Tab) 40 mg DAILY@06 PO Last administered on 03/22/18 05:38; Admin Dose 40 MG; Start 03/21/18 at 06:00 Senna (Senokot) 2 tab BID PRN PO CONSTIPATION; Start 03/20/18 at 19:30 Atorvastatin Calcium (Lipitor) 20 mg QHS PO Last administered on 03/21/18at 22:23; Admin Dose 20 MG; Start 03/20/18 at 21:00 Brimonidine Tartrate (Alphagan P 0.1%) 1 drop DAILY BOTH EYES Last administered on 03/22/18 08:12; Admin Dose 1 DROP; Start 03/21/18 at 09:00 Citalopram Hydrobromide (Celexa) 20 mg DAILY PO Last administered on 03/22/18 08:11; Admin Dose 20 MG; Start 03/21/18 at 09:00 Dorzolamide/ Timolol (Cosopt) 1 drop BID BOTH EYES Last administered on 03/22/18 08:12; Admin Dose 1 DROP; Start 03/20/18 at 21:00 Metformin HCl (Glucophage) 1,000 mg BID WITH MEALS PO Last administered on 03/22/18 07:53; Admin Dose 1,000 MG; Start 03/21/18 at 08:00 Metoprolol Succinate (Toprol Xl) 100 mg DAILY PO Last administered on 03/21/18 08:09; Admin Dose 100 MG; Start 03/21/18 at 09:00 Triamterene/HCTZ (Maxzide-25) 1 tab DAILY PO Last administered on 03/22/18 08:14; Admin Dose 1 TAB; Start 03/21/18 at 09:00 Diagnostic Test (Pha) (Accu-Chek) 1 ea AC MEALS AND BEDTIME XX Last administered on 03/22/18at 07:51; Admin Dose 1 EA; Start 03/20/18 at 21:00 Miscellaneous Information 1 ea NOTE XX ; Start 03/20/18 at 20:30 Glucose (Glutose) 15 gm Q15M PRN PO DECREASED GLUCOSE; Start 03/20/18 at 20:30 Glucose (Glutose) 22.5 gm Q15M PRN PO DECREASED GLUCOSE; Start 03/20/18 at 20:30 Dextrose (D50w Syringe) 25 ml Q15M PRN IV DECREASED GLUCOSE; Start 03/20/18 at 20:30 Dextrose (D50w Syringe) 50 ml Q15M PRN IV DECREASED GLUCOSE; Start 03/20/18 at 20:30 Glucagon (Glucagen) 1 mg Q15M PRN IM DECREASED GLUCOSE; Start 03/20/18 at 20:30 Glucose (Glutose) 15 gm Q15M PRN BUCCAL DECREASED GLUCOSE; Start 03/20/18 at 20:30 Hydralazine HCl (Apresoline) 5 mg Q4H PRN IV ELEVATED BLOOD PRESSURE Last administered on 03/20/18at 21:52; Admin Dose 5 MG; Start 03/20/18 at 21:30 Donepezil HCl (Aricept) 5 mg DAILY PO Last administered on 03/22/18 08:10; Admin Dose 5 MG; Start 03/21/18 at 13:30 Memantine (Namenda) 5 mg DAILY PO Last administered on 03/22/18 08:10; Admin Dose 5 MG; Start 03/21/18 at 13:30 Miscellaneous Information Patients own medicat... BID@ XX Last administered on 03/22/18 10:10; Admin Dose 1 EA; Start 03/22/18 at 10:00 BRENTON GAYLE Mar 22, 2018 10:40
[2018-03-22] MEDS: INSULIN GLARGINE [LANTus] (100 UNITS/ML) SYG SC SCH (12:06)
[2018-03-22] MEDS: ATORVASTATIN 20 MG TAB PO SCH (20:59)
[2018-03-23] VITALS (12 sets, daily range): BP systolic 122–151; BP diastolic 63–71; PULSE 65–82; RESP 16–22
[2018-03-23] MEDS: PANTOPRAZOLE (EC) 40 MG TAB PO SCH (05:22)
[2018-03-23] MEDS: ACCU-CHEK XX SCH ×4 (07:31→19:59)
[2018-03-23] MEDS: metFORMIN 500 MG TAB PO SCH ×2 (07:32→17:10)
[2018-03-23] MEDS: INSULIN GLARGINE [LANTus] (100 UNITS/ML) SYG SC SCH (07:37)
[2018-03-23] MEDS: BRIMONIDINE 0.1% 5 ML OPH BOTH EYES SCH (08:24)
[2018-03-23] MEDS: METOPROLOL (XL) 100 MG TAB PO SCH (08:25)
[2018-03-23] MEDS: DORZOLAMIDE/TIMOLOL 10 ML OPH BOTH EYES SCH ×2 (08:25→20:00)
[2018-03-23] MEDS: DONEPEZIL 5 MG TAB PO SCH (08:26)
[2018-03-23] MEDS: CITALOPRAM 20 MG TAB PO SCH (08:26)
[2018-03-23] MEDS: TRIAMTERENE/HCTZ (37.5/25) TAB PO SCH (08:26)
[2018-03-23] MEDS: MEMANTINE 5 MG TAB PO SCH (08:26)
--- NOTE | 2018-03-23 12:58 | CONS ---
Date/Time of Note Date/Time of Note DATE: 03/23/18 TIME: 12:55 Consult Date/Type/Reason Admit Date/Time Mar 20, 2018 at 18:46 Initial Consult Date 03/21/18 Type of Consultation: Urology Reason for Consultation Urinary incontinence Requesting Provider: BRENTON GAYLE Subjective Patient is sitting up in a chair. His is at his bedside and she tells me that at home she uses a diaper on him and changes it every 3-4 hours. His incontinence is because he cannot reach the bathroom on time and also from his dementia. Objective Vital Signs Date Temp Pulse Resp B/P (MAP) Pulse Ox O2 O2 Flow FiO2 Time Delivery Rate 03/23/18 97.6 71 22 138/71 12:16 (93) 03/23/18 97 07:24 03/23/18 Room Air 04:02 Intake and Output 03/22/18 03/22/18 03/23/18 1515:00 23:00 07:00 IntakeIntake Total 400 ml 530 ml OutputOutput Total 950 ml 400 ml 100 ml BalanceBalance -550 ml 130 ml -100 ml Exam The abdomen is soft and there is no tenderness. The bladder is not distended Results/Medications Result Diagram: 03/21/18 0509 03/21/18 0510 Results 24 hrs Laboratory Tests Test 03/22/18 17:04 03/22/18 22:09 03/23/18 07:27 03/23/18 11:31 Bedside Glucose 219 220 181 193 Medications Current Medications IV Flush (NS 3 ml) 3 ml PER PROTOCOL IV ; Start 03/20/18 at 19:30 Ondansetron HCl (Zofran Inj) 4 mg Q6H PRN IV NAUSEA AND/OR VOMITING; Start 03/20/18 at 19:30 Acetaminophen (Tylenol Tab) 650 mg Q6H PRN PO PAIN LEVEL 1-3 OR FEVER; Start 03/20/18 at 19:30 Pantoprazole (Protonix Tab) 40 mg DAILY@06 PO Last administered on 03/23/18at 05:22; Admin Dose 40 MG; Start 03/21/18 at 06:00 Senna (Senokot) 2 tab BID PRN PO CONSTIPATION; Start 03/20/18 at 19:30 Atorvastatin Calcium (Lipitor) 20 mg QHS PO Last administered on 1/1/19at 20:59; Admin Dose 20 MG; Start 03/20/18 at 21:00 Brimonidine Tartrate (Alphagan P 0.1%) 1 drop DAILY BOTH EYES Last administered on 03/23/18 08:24; Admin Dose 1 DROP; Start 03/21/18 at 09:00 Citalopram Hydrobromide (Celexa) 20 mg DAILY PO Last administered on 03/23/18 08:26; Admin Dose 20 MG; Start 03/21/18 at 09:00 Dorzolamide/ Timolol (Cosopt) 1 drop BID BOTH EYES Last administered on 03/23/18 08:25; Admin Dose 1 DROP; Start 03/20/18 at 21:00 Metformin HCl (Glucophage) 1,000 mg BID WITH MEALS PO Last administered on 03/23/18 07:32; Admin Dose 1,000 MG; Start 03/21/18 at 08:00 Metoprolol Succinate (Toprol Xl) 100 mg DAILY PO Last administered on 03/23/18 08:25; Admin Dose 100 MG; Start 03/21/18 at 09:00 Triamterene/HCTZ (Maxzide-25) 1 tab DAILY PO Last administered on 03/23/18 08:26; Admin Dose 1 TAB; Start 03/21/18 at 09:00 Diagnostic Test (Pha) (Accu-Chek) 1 ea AC MEALS AND BEDTIME XX Last administered on 03/23/18 11:34; Admin Dose 1 EA; Start 03/20/18 at 21:00 Miscellaneous Information 1 ea NOTE XX ; Start 03/20/18 at 20:30 Glucose (Glutose) 15 gm Q15M PRN PO DECREASED GLUCOSE; Start 03/20/18 at 20:30 Glucose (Glutose) 22.5 gm Q15M PRN PO DECREASED GLUCOSE; Start 03/20/18 at 20:30 Dextrose (D50w Syringe) 25 ml Q15M PRN IV DECREASED GLUCOSE; Start 03/20/18 at 20:30 Dextrose (D50w Syringe) 50 ml Q15M PRN IV DECREASED GLUCOSE; Start 03/20/18 at 20:30 Glucagon (Glucagen) 1 mg Q15M PRN IM DECREASED GLUCOSE; Start 03/20/18 at 20:30 Glucose (Glutose) 15 gm Q15M PRN BUCCAL DECREASED GLUCOSE; Start 03/20/18 at 20:30 Hydralazine HCl (Apresoline) 5 mg Q4H PRN IV ELEVATED BLOOD PRESSURE Last administered on 03/20/18at 21:52; Admin Dose 5 MG; Start 03/20/18 at 21:30 Donepezil HCl (Aricept) 5 mg DAILY PO Last administered on 03/23/18 08:26; Admin Dose 5 MG; Start 03/21/18 at 13:30 Memantine (Namenda) 5 mg DAILY PO Last administered on 03/23/18 08:26; Admin Dose 5 MG; Start 03/21/18 at 13:30 Miscellaneous Information Patients own medicat... BID@10,16 XX Last administered on 03/23/18 10:13; Admin Dose 1 EA; Start 03/22/18 at 10:00 Insulin Glargine (Lantus) 10 units DAILY@0800 SC Last administered on 03/23/18 07:37; Admin Dose 10 UNITS; Start 03/22/18 at 11:00 Assessment/Plan Chief Complaint/Hosp Course 87 year old male fell when getting out of bed and was unable to get up, even with his 's help. He didn't lose consciousness or strike his head. The day prior to admission he was very alert and lucid; and ambulating without assistance using his walker.Last Wednesday (4 days [employer]) he fell when walking to answer the door; struck his head firmly against the door then slid to the groun d. He lives at home with his . He has advanced dementia and has very poor function. For the past six months he has been staying in bed more than half the day. He has urinary incontinence and uses diapers, he does have nocturia about 3-4 times and tries to use a urinal at home but sometimes the urine comes out before he could use the urinal. During the day he urinates every 3 hours and he tries to hold his urine. He denies any dysuria and there is no hematuria. Although usually can ambulate to the bathroom to have bowel movements. The patient is often confused but has never failed to recognize family members. He cannot dress or bathe himself independently. A home health nurse comes once per week. The son reports that the patient's has reported feeling overwhelmed caring for the patient, but the son is resistant to put the patient in a SNF. A urology consult was requested because of the urinary incontinence. The patient does have urinary urgency incontinence. The renal and pelvic ultrasound shows that there is no urinary retention and his postvoid residual is small and the prostate size is small. Therefore his problem is more of urgency incontinence that may be related to his dementia. Recommend: Reminded him and encouraged him to use the urinal. One could try to use oxybutynin or Vesicare or Detrol LA but these are going to cause him constipation and could cause retention as well. Therefore for now just encourage him to use the urinal and if needed use diapers. I did discuss with his these options and she is very comfortable continuing using a diaper on him. JERRELL FRANCO MD Mar 23, 2018 12:58
--- NOTE | 2018-03-23 13:30 | PN ---
Date/Time of Note Date/Time of Note DATE: 03/23/18 TIME: 13:25 Assessment/Plan VTE Prophylaxis Risk score (from Ns)>0 risk: 7 [place] [facility] [place] Pharmacological prophylaxis: NA/contraindicated Pharm contraindication: renal impairment Lines/Catheters IV [facility]ter Type [facility]from [facility] [place] Urinary Cath still in place: No Assessment/Plan Hospital Course #Frequent falls likely secondary to progressive dementia -Per history it appears that falls are not associated with syncope -No evidence of infection -MRI brain shows no acute findings, volume loss is noted -Rehab evaluation appreciated #Progressive dementia -Patient has no formal diagnosis of dementia but based on history and progressive symptoms patient does have evidence of dementia -Started Namenda and Aricept, increase Namenda to 10 mg daily #Urinary incontinence secondary to dementia -Urology consultation appreciated, no indication for medications at this time -Ultrasound of the kidneys show no hydronephrosis or prostamegaly and PVR is within normal limits -Continue diapers #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 #Diabetes-sugars now improved with Lantus - Low risk of lactic acidosis... will continue home metformin -Have added Lantus, increase dose as needed #CKD III - Cr 0.97 on admission - Renally dose meds, no nephrotoxins. #HTN - Cont home antihypertensives #Dyslipidemia - Cont home statin #PUD - Cont PPI Prophylaxis: SCDs DC planning: Anticipate DC to inpatient rehab in 1-2 days, currently pending approval by insurance Result Diagram: 03/21/18 0509 03/21/18 0510 Results 24hrs Laboratory Tests Test 03/22/18 17:04 03/22/18 22:09 03/23/18 07:27 03/23/18 11:31 Bedside Glucose 219 220 181 193 Subjective 24 Hr Interval Summary Constitutional: no complaints Exam/Review of Systems Vital Signs Vitals Vital Signs Date Temp Pulse Resp B/P (MAP) Pulse Ox O2 O2 Flow FiO2 Time Delivery Rate 03/23/18 97.6 71 22 138/71 12:16 (93) 03/23/18 97 07:24 03/23/18 Room Air 04:02 Intake and Output 03/22/18 03/22/18 03/23/18 1414:59 22:59 06:59 IntakeIntake Total 400 ml 530 ml OutputOutput Total 950 ml 400 ml 100 ml BalanceBalance -550 ml 130 ml -100 ml Exam Constitutional: alert Respiratory: clear to auscultation Cardiovascular: regular rate and rhythm Gastrointestinal: soft; No distended Musculoskeletal: nl extremities to inspection Medications Medications Current Medications IV Flush (NS 3 ml) 3 ml PER PROTOCOL IV ; Start 03/20/18 at 19:30 Ondansetron HCl (Zofran Inj) 4 mg Q6H PRN IV NAUSEA AND/OR VOMITING; Start 03/20/18 at 19:30 Acetaminophen (Tylenol Tab) 650 mg Q6H PRN PO PAIN LEVEL 1-3 OR FEVER; Start 03/20/18 at 19:30 Pantoprazole (Protonix Tab) 40 mg DAILY@06 PO Last administered on 03/23/18 05:22; Admin Dose 40 MG; Start 03/21/18 at 06:00 Senna (Senokot) 2 tab BID PRN PO CONSTIPATION; Start 03/20/18 at 19:30 Atorvastatin Calcium (Lipitor) 20 mg QHS PO Last administered on 03/22/18 20:59; Admin Dose 20 MG; Start 03/20/18 at 21:00 Brimonidine Tartrate (Alphagan P 0.1%) 1 drop DAILY BOTH EYES Last administered on 03/23/18 08:24; Admin Dose 1 DROP; Start 03/21/18 at 09:00 Citalopram Hydrobromide (Celexa) 20 mg DAILY PO Last administered on 03/23/18 08:26; Admin Dose 20 MG; Start 03/21/18 at 09:00 Dorzolamide/ Timolol (Cosopt) 1 drop BID BOTH EYES Last administered on 03/23/18 08:25; Admin Dose 1 DROP; Start 03/20/18 at 21:00 Metformin HCl (Glucophage) 1,000 mg BID WITH MEALS PO Last administered on 03/23/18 07:32; Admin Dose 1,000 MG; Start 03/21/18 at 08:00 Metoprolol Succinate (Toprol Xl) 100 mg DAILY PO Last administered on 03/23/18 08:25; Admin Dose 100 MG; Start 03/21/18 at 09:00 Triamterene/HCTZ (Maxzide-25) 1 tab DAILY PO Last administered on 03/23/18 08:26; Admin Dose 1 TAB; Start 03/21/18 at 09:00 Diagnostic Test (Pha) (Accu-Chek) 1 ea AC MEALS AND BEDTIME XX Last administered on 03/23/18 11:34; Admin Dose 1 EA; Start 03/20/18 at 21:00 Miscellaneous Information 1 ea NOTE XX ; Start 03/20/18 at 20:30 Glucose (Glutose) 15 gm Q15M PRN PO DECREASED GLUCOSE; Start 03/20/18 at 20:30 Glucose (Glutose) 22.5 gm Q15M PRN PO DECREASED GLUCOSE; Start 03/20/18 at 20:30 Dextrose (D50w Syringe) 25 ml Q15M PRN IV DECREASED GLUCOSE; Start 03/20/18 at 20:30 Dextrose (D50w Syringe) 50 ml Q15M PRN IV DECREASED GLUCOSE; Start 03/20/18 at 20:30 Glucagon (Glucagen) 1 mg Q15M PRN IM DECREASED GLUCOSE; Start 03/20/18 at 20:30 Glucose (Glutose) 15 gm Q15M PRN BUCCAL DECREASED GLUCOSE; Start 03/20/18 at 20:30 Hydralazine HCl (Apresoline) 5 mg Q4H PRN IV ELEVATED BLOOD PRESSURE Last admi nistered on 03/20/18at 21:52; Admin Dose 5 MG; Start 03/20/18 at 21:30 Donepezil HCl (Aricept) 5 mg DAILY PO Last administered on 03/23/18 08:26; Admin Dose 5 MG; Start 03/21/18 at 13:30 Memantine (Namenda) 5 mg DAILY PO Last administered on 03/23/18 08:26; Admin Dose 5 MG; Start 03/21/18 at 13:30 Miscellaneous Information Patients own medicat... BID@10,16 XX Last administered on 03/23/18 10:13; Admin Dose 1 EA; Start 03/22/18 at 10:00 Insulin Glargine (Lantus) 10 units DAILY@0800 SC Last administered on 03/23/18 07:37; Admin Dose 10 UNITS; Start 03/22/18 at 11:00 BRENTON GAYLE Mar 23, 2018 13:30
[2018-03-23] MEDS: ATORVASTATIN 20 MG TAB PO SCH (20:00)
[2018-03-24] VITALS (12 sets, daily range): BP systolic 98–149; BP diastolic 50–77; PULSE 60–71; RESP 16–22
[2018-03-24] MEDS: PANTOPRAZOLE (EC) 40 MG TAB PO SCH (05:29)
[2018-03-24] MEDS: ACCU-CHEK XX SCH ×4 (07:00→22:05)
[2018-03-24] MEDS: TRIAMTERENE/HCTZ (37.5/25) TAB PO SCH (08:55)
[2018-03-24] MEDS: METOPROLOL (XL) 100 MG TAB PO SCH (08:56)
[2018-03-24] MEDS: MEMANTINE 5 MG TAB PO SCH (08:56)
[2018-03-24] MEDS: CITALOPRAM 20 MG TAB PO SCH (08:56)
[2018-03-24] MEDS: DONEPEZIL 5 MG TAB PO SCH (08:56)
[2018-03-24] MEDS: metFORMIN 500 MG TAB PO SCH ×2 (08:57→17:36)
[2018-03-24] MEDS: INSULIN GLARGINE [LANTus] (100 UNITS/ML) SYG SC SCH (09:24)
[2018-03-24] MEDS: BRIMONIDINE 0.1% 5 ML OPH BOTH EYES SCH (09:24)
[2018-03-24] MEDS: DORZOLAMIDE/TIMOLOL 10 ML OPH BOTH EYES SCH ×2 (09:24→22:05)
[2018-03-24] MEDS ORDERED: DONE5TAB53 PO (10:51)
[2018-03-24] MEDS ORDERED: MEMA5TAB14 PO (10:51)
--- NOTE | 2018-03-24 10:52 | PDOCDIS ---
Discharge Instructions CONDITION [id number] Patient Condition: [id number] Good HOME CARE INSTRUCTIONS: [id number] Special Diet: [id number] PUREE ACTIVITY: [id number] Activity Restrictions: [id number] Slowly Increase Activity FOLLOW UP/APPOINTMENTS Follow-up Plan FOLLOW UP WITH YOUR PCP IN 1-2 WEEKS, FOLLOW UP WITH HOME HEALTH BRENTON GAYLE Mar 24, 2018 10:52
--- NOTE | 2018-03-24 15:36 | DS ---
Date/Time of Note Date/Time of Note DATE: 03/24/18 TIME: 15:21 Discharge Summary Admission/Discharge Info Admit Date/Time Mar 20, 2018 at 18:46 Discharge Date/Time March 24, 2018 Discharge Diagnosis 1. Frequent falls likely secondary to progressive dementia -Per history it appears that falls are not associated with syncope -No evidence of infection -MRI brain shows no acute findings, volume loss is noted -Patient and refusing assisted, DC home with home health 2. Moderate to severe dementia -Patient has no formal diagnosis of dementia but based on history and progressive symptoms patient does have evidence of moderate to severe dementia -Started Namenda and Aricept during his hospitalization -Family will consider hospice in the near future 3. Urinary incontinence secondary to dementia -Urology consultation appreciated, no indication for medications at this time -Ultrasound of the kidneys shows no hydronephrosis or prostamegaly and PVR is within normal limits -Continue diapers 4. 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 Elevated troponin-stable - Not associated with chest pain - Some lateral T wave abnormalities on EKG - In the setting of CKD expect elevated trop. 6. Diabetes-sugars now improved with Lantus - Low risk of lactic acidosis... will continue home metformin -Will not DC with Lantus as patient has been eating less and anticipate his diabetes to resolve in the near future, risk of hypoglycemia is significant enough not to DC with Lantus 7. CKD III-stable 8. HTN - Cont home antihypertensives but recommend to DC Toprol 9. Dyslipidemia - Cont home statin 10. PUD - Cont PPI Patient Condition: Good Hospital Course Patient is an 87-year-old male with a history of progressive debility, hypertension, diabetes, depression, CKD who presents with repeated falls. MRI brain showed no acute findings but volume loss was noted. Based on history patient clearly has progressive dementia that could be classified as moderate to severe, of note patient had no no prior formal diagnosis of dementia. Patient was noted to have dysphasia as well as urinary incontinence both related to his progressive dementia. Patient has been mostly bedbound over the past several months with declining functional status and memory. Patient had no evidence of infection during this hospitalization and MRI brain showed no acute findings but did note volume loss, patient was started on Namenda and Aricept and PT did work with the patient. Patient was felt to be appropriate for assisted placement but patient and family were not interested and patient wanted to be discharged home with home health. On day of discharge patient's vitals, labs and physical exam are stable, patient has no acute complaints and questions are answered. Patient was recommended to continue a pure diet and was to use diapers for his urinary incontinence. Home Meds Active Scripts Memantine HCl (Memantine HCl) 5 Mg Tablet, 10 MG PO DAILY, #60 TAB Prov:BRENTON GAYLE 03/24/18 Donepezil* (Aricept*) 5 Mg Tablet, 5 MG PO DAILY, #60 TAB Prov:JESSY GAYLEJuwan 03/24/18 Reported Medications Triamterene/Hctz* (Maxzide (37.5-25)*) 1 Each Tablet, 1 EACH PO DAILY, #30 TAB 03/20/18 Triamcinolone Acetonide* (Kenalog*) 0.1%-15GM Cr, 1 APPLIC TOP BID, #1 TUB 03/20/18 Pantoprazole* (Pantoprazole*) 40 Mg Tablet.dr, 40 MG PO AC BREAKFAST, TAB 03/20/18 Metformin* (Glucophage*) 1,000 Mg Tablet, 1000 MG PO BID, #60 TAB 03/20/18 Losartan Potassium* (Losartan Potassium*) 25 Mg Tablet, 25 MG PO DAILY, TAB 03/20/18 Ibuprofen* (Ibuprofen*) 600 Mg Tablet, 600 MG PO Q8 PRN for PAIN, TAB 03/20/18 Guaifenesin-Codeine Phosphate* (Guaifenesin* AC Cough Syrup) 473 Ml Liquid, 5-10 ML PO Q4H PRN for COUGH, ML 03/20/18 Exenatide ([place]) 10 Mcg/0.04 Ml Pen.injctr, 10 MCG SC BID 03/20/18 Escitalopram Oxalate* (Lexapro*) 10 Mg Tablet, 10 MG PO DAILY, #30 TAB 03/20/18 Dorzolamide/Timolol* (Dorzolamide/Timolol*) 10 Ml Drops, 1 DROP BOTH EYES BID, #1 EA 03/20/18 Citalopram Hydrobromide* (Citalopram Hydrobromide*) 20 Mg Tablet, 20 MG PO DAILY, #30 TAB 03/20/18 Brimonidine Tartrate* (Alphagan P*) 0.1%-15 Ml Opht Drops, 1 DROP BOTH EYES DAILY, #1 EA 03/20/18 Atorvastatin Calcium* (Atorvastatin Calcium*) 20 Mg Tablet, 20 MG PO QHS, #30 TAB 03/20/18 Discontinued Reported Medications Metoprolol Succinate* (Toprol XL*) 100 Mg Tab.sr.24h, 100 MG PO DAILY, #30 TAB 03/20/18 Follow-up Plan FOLLOW UP WITH YOUR PCP IN 1-2 WEEKS, FOLLOW UP WITH HOME HEALTH Primary Care Provider Not On Staff Doctor Time spent on discharge: > 30 minutes BRENTON GAYLE Mar 24, 2018 15:31
--- NOTE | 2018-03-24 18:47 | CONS ---
Date/Time of Note Date/Time of Note DATE: 03/24/18 TIME: 18:45 Consult Date/Type/Reason Admit Date/Time Mar 20, 2018 at 18:46 Initial Consult Date 03/21/18 Type of Consultation: Urology Reason for Consultation Urinary incontinence Requesting Provider: BRENTON GAYLE Subjective Patient is comfortable, he denies any pain. His niece is helping him with his dinner Objective Vital Signs Date Temp Pulse Resp B/P (MAP) Pulse Ox O2 O2 Flow FiO2 Time Delivery Rate 03/24/18 62 16:01 03/24/18 97.0 22 118/56 96 Room Air 15:50 (76) Intake and Output 03/23/18 03/23/18 03/24/18 1414:59 22:59 06:59 IntakeIntake Total 540 ml 40 ml BalanceBalance 540 ml 40 ml Exam Abdomen is soft. He is voiding in the pads. Results/Medications Result Diagram: 03/21/18 0509 03/21/18 0510 Results 24 hrs Laboratory Tests Test 03/23/18 19:59 03/24/18 07:58 03/24/18 11:32 03/24/18 17:29 Bedside Glucose 147 113 117 124 Medications Current Medications IV Flush (NS 3 ml) 3 ml PER PROTOCOL IV ; Start 03/20/18 at 19:30 Ondansetron HCl (Zofran Inj) 4 mg Q6H PRN IV NAUSEA AND/OR VOMITING; Start 03/20/18 at 19:30 Acetaminophen (Tylenol Tab) 650 mg Q6H PRN PO PAIN LEVEL 1-3 OR FEVER; Start 03/20/18 at 19:30 Pantoprazole (Protonix Tab) 40 mg DAILY@06 PO Last administered on 03/23/18at 05:22; Admin Dose 40 MG; Start 03/21/18 at 06:00 Senna (Senokot) 2 tab BID PRN PO CONSTIPATION; Start 03/20/18 at 19:30 Atorvastatin Calcium (Lipitor) 20 mg QHS PO Last administered on 03/23/18at 20:00; Admin Dose 20 MG; Start 03/20/18 at 21:00 Brimonidine Tartrate (Alphagan P 0.1%) 1 drop DAILY BOTH EYES Last administered on 03/24/18at 09:24; Admin Dose 1 DROP; Start 03/21/18 at 09:00 Citalopram Hydrobromide (Celexa) 20 mg DAILY PO Last administered on 03/24/18 08:56; Admin Dose 20 MG; Start 03/21/18 at 09:00 Dorzolamide/ Timolol (Cosopt) 1 drop BID BOTH EYES Last administered on 03/24/18 09:24; Admin Dose 1 DROP; Start 03/20/18 at 21:00 Metformin HCl (Glucophage) 1,000 mg BID WITH MEALS PO Last administered on 03/24/18 17:36; Admin Dose 1,000 MG; Start 03/21/18 at 08:00 Metoprolol Succinate (Toprol Xl) 100 mg DAILY PO Last administered on 03/24/18 08:56; Admin Dose 100 MG; Start 03/21/18 at 09:00 Triamterene/HCTZ (Maxzide-25) 1 tab DAILY PO Last administered on 03/24/18 08:55; Admin Dose 1 TAB; Start 03/21/18 at 09:00 Diagnostic Test (Pha) (Accu-Chek) 1 ea AC MEALS AND BEDTIME XX Last administered on 03/24/18 17:27; Admin Dose 1 EA; Start 03/20/18 at 21:00 Miscellaneous Information 1 ea NOTE XX ; Start 03/20/18 at 20:30 Glucose (Glutose) 15 gm Q15M PRN PO DECREASED GLUCOSE; Start 03/20/18 at 20:30 Glucose (Glutose) 22.5 gm Q15M PRN PO DECREASED GLUCOSE; Start 03/20/18 at 20:30 Dextrose (D50w Syringe) 25 ml Q15M PRN IV DECREASED GLUCOSE; Start 03/20/18 at 20:30 Dextrose (D50w Syringe) 50 ml Q15M PRN IV DECREASED GLUCOSE; Start 03/20/18 at 20:30 Glucagon (Glucagen) 1 mg Q15M PRN IM DECREASED GLUCOSE; Start 03/20/18 at 20:30 Glucose (Glutose) 15 gm Q15M PRN BUCCAL DECREASED GLUCOSE; Start 03/20/18 at 20:30 Hydralazine HCl (Apresoline) 5 mg Q4H PRN IV ELEVATED BLOOD PRESSURE Last a dministered on 03/20/18at 21:52; Admin Dose 5 MG; Start 03/20/18 at 21:30 Donepezil HCl (Aricept) 5 mg DAILY PO Last administered on 03/24/18at 08:56; Admin Dose 5 MG; Start 03/21/18 at 13:30 Miscellaneous Information Patients own medicat... BID@10,16 XX Last administered on 03/23/18at 15:31; Admin Dose 1 EA; Start 03/22/18 at 10:00 Memantine (Namenda) 10 mg DAILY PO Last administered on 03/24/18at 08:56; Admin Dose 10 MG; Start 03/24/18 at 09:00 Insulin Glargine (Lantus) 12 units DAILY@0800 SC Last administered on 03/24/18 09:24; Admin Dose 12 UNITS; Start 03/24/18 at 08:00 Assessment/Plan Chief Complaint/Hosp Course 87 year old male fell when getting out of bed and was unable to get up, even with his 's help. He didn't lose consciousness or strike his head. The day prior to admission he was very alert and lucid; and ambulating without assistance using his walker.Last Wednesday (4 days [employer]) he fell when walking to answer the door; struck his head firmly against the door then slid to the ground. He lives at home with his . He has advanced dementia and has very poor function. For the past six months he has been staying in bed more than half the day. He has urinary incontinence and uses diapers, he does have nocturia about 3-4 times and tries to use a urinal at home but sometimes the urine comes out before he could use the urinal. During the day he urinates every 3 hours and he tries to hold his urine. He denies any dysuria and there is no hematuria. Although usually can ambulate to the bathroom to have bowel movements. The patient is often confused but has never failed to recognize family members. He cannot dress or bathe himself independently. A home health nurse comes once per week. The son reports that the patient's has reported feeling overwhelmed caring for the patient, but the son is resistant to put the patient in a SNF. A urology consult was requested because of the urinary incontinence. The patient does have urinary urgency incontinence. The renal and pelvic ultrasound shows that there is no urinary retention and his postvoid residual is small and the prostate size is small. Therefore his problem is more of urgency incontinence that may be related to his dementia. Recommend: Reminded him and encouraged him to use the urinal. One could try to use oxybutynin or Vesicare or Detrol LA but these are going to cause him constipation and could cause retention as well. Therefore for now just encourage him to use the urinal and if needed use diapers. I did discuss with his these options and she is very comfortable continuing using a diaper on him. JERRELL FRANCO MD Mar 24, 2018 18:47
[2018-03-24] MEDS: ATORVASTATIN 20 MG TAB PO SCH (22:05)
[2018-03-25 02:45] VITALS: BP 124/56; PULSE 64; RESP 16
[2018-03-25] MEDS: PANTOPRAZOLE (EC) 40 MG TAB PO SCH (05:29)
[2018-03-25] MEDS: ACCU-CHEK XX SCH ×4 (07:00→20:04)
[2018-03-25 07:30] VITALS: BP 132/60; PULSE 59; RESP 18
[2018-03-25] MEDS: metFORMIN 500 MG TAB PO SCH ×2 (09:02→18:00)
[2018-03-25] MEDS: DORZOLAMIDE/TIMOLOL 10 ML OPH BOTH EYES SCH ×2 (09:03→20:04)
[2018-03-25] MEDS: BRIMONIDINE 0.1% 5 ML OPH BOTH EYES SCH (09:03)
[2018-03-25] MEDS: TRIAMTERENE/HCTZ (37.5/25) TAB PO SCH (09:03)
[2018-03-25] MEDS: INSULIN GLARGINE [LANTus] (100 UNITS/ML) SYG SC SCH (09:06)
[2018-03-25] MEDS: MEMANTINE 5 MG TAB PO SCH (10:59)
[2018-03-25] MEDS: DONEPEZIL 5 MG TAB PO SCH (10:59)
[2018-03-25] MEDS: CITALOPRAM 20 MG TAB PO SCH (10:59)
[2018-03-25] MEDS: METOPROLOL (XL) 100 MG TAB PO SCH (11:00)
[2018-03-25 14:08] VITALS: BP 128/64; PULSE 63; RESP 16
--- NOTE | 2018-03-25 14:27 | PN ---
Date/Time of Note Date/Time of Note DATE: 03/25/18 TIME: 14:27 Assessment/Plan VTE Prophylaxis Risk score (from Ns)>0 risk: 7 SCD applied (from Ns): Yes Pharmacological prophylaxis: NA/contraindicated Pharm contraindication: renal impairment Lines/Catheters IV Catheter Type (from Nrs): Saline Lock Urinary Cath still in place: No Assessment/Plan Hospital Course 1. Frequent falls likely secondary to progressive dementia -Per history it appears that falls are not associated with syncope -No evidence of infection -MRI brain shows no acute findings, volume loss is noted -Patient and refusing long term, DC home with home health 2. Moderate to severe dementia -Patient has no formal diagnosis of dementia but based on history and progressive symptoms patient does have evidence of moderate to severe dementia -Started Namenda and Aricept during his hospitalization -Family will consider hospice in the near future 3. Urinary incontinence secondary to dementia -Urology consultation appreciated, no indication for medications at this time -Ultrasound of the kidneys shows no hydronephrosis or prostamegaly and PVR is within normal limits -Continue diapers 4. 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 Elevated troponin-stable - Not associated with chest pain - Some lateral T wave abnormalities on EKG - In the setting of CKD expect elevated trop. 6. Diabetes-sugars now improved with Lantus - Low risk of lactic acidosis... will continue home metformin -Will not DC with Lantus as patient has been eating less and anticipate his diabetes to resolve in the near future, risk of hypoglycemia is significant enough not to DC with Lantus 7. CKD III-stable 8. HTN - Cont home antihypertensives but DC Toprol 9. Dyslipidemia - Cont home statin 10. PUD - Cont PPI Result Diagram: 03/21/18 0509 03/21/18 0510 Results 24hrs Laboratory Tests Test 03/24/18 17:29 03/24/18 22:07 03/25/18 09:01 03/25/18 12:46 Bedside Glucose 124 130 108 146 Subjective 24 Hr Interval Summary Constitutional: no complaints Exam/Review of Systems Vital Signs Vitals Vital Signs Date Temp Pulse Resp B/P (MAP) Pulse Ox O2 O2 Flow FiO2 Time Delivery Rate 03/25/18 98.4 63 16 128/64 96 14:08 (85) 03/24/18 Room Air 15:50 Intake and Output 03/24/18 03/24/18 03/25/18 1515:00 23:00 07:00 IntakeIntake Total 210 ml BalanceBalance 210 ml Exam Constitutional: alert Respiratory: clear to auscultation Cardiovascular: regular rate and rhythm Gastrointestinal: soft; No distended Musculoskeletal: nl extremities to inspection Medications Medications Current Medications IV Flush (NS 3 ml) 3 ml PER PROTOCOL IV ; Start 03/20/18 at 19:30 Ondansetron HCl (Zofran Inj) 4 mg Q6H PRN IV NAUSEA AND/OR VOMITING; Start at 19:30 Acetaminophen (Tylenol Tab) 650 mg Q6H PRN PO PAIN LEVEL 1-3 OR FEVER; Start 03/20/18 at 19:30 Pantoprazole (Protonix Tab) 40 mg DAILY@06 PO Last administered on 03/25/18 05:29; Admin Dose 40 MG; Start 03/21/18 at 06:00 Senna (Senokot) 2 tab BID PRN PO CONSTIPATION; Start 03/20/18 at 19:30 Atorvastatin Calcium (Lipitor) 20 mg QHS PO Last administered on 03/24/18 22:05; Admin Dose 20 MG; Start 03/20/18 at 21:00 Brimonidine Tartrate (Alphagan P 0.1%) 1 drop DAILY BOTH EYES Last administered on 03/25/18 09:03; Admin Dose 1 DROP; Start 03/21/18 at 09:00 Citalopram Hydrobromide (Celexa) 20 mg DAILY PO Last administered on 03/25/18 10:59; Admin Dose 20 MG; Start 03/21/18 at 09:00 Dorzolamide/ Timolol (Cosopt) 1 drop BID BOTH EYES Last administered on 03/25/18 09:03; Admin Dose 1 DROP; Start 03/20/18 at 21:00 Metformin HCl (Glucophage) 1,000 mg BID WITH MEALS PO Last administered on 03/25/18 09:02; Admin Dose 1,000 MG; Start 03/21/18 at 08:00 Metoprolol Succinate (Toprol Xl) 100 mg DAILY PO Last administered on 03/25/18 11:00; Admin Dose 100 MG; Start 12/31/18 at 09:00 Triamterene/HCTZ (Maxzide-25) 1 tab DAILY PO Last administered on 03/25/18 09:03; Admin Dose 1 TAB; Start 03/21/18 at 09:00 Diagnostic Test (Pha) (Accu-Chek) 1 ea AC MEALS AND BEDTIME XX Last administered on 03/25/18 11:30; Admin Dose 1 EA; Start 03/20/18 at 21:00 Miscellaneous Information 1 ea NOTE XX ; Start 03/20/18 at 20:30 Glucose (Glutose) 15 gm Q15M PRN PO DECREASED GLUCOSE; Start 03/20/18 at 20:30 Glucose (Glutose) 22.5 gm Q15M PRN PO DECREASED GLUCOSE; Start 03/20/18 at 20:30 Dextrose (D50w Syringe) 25 ml Q15M PRN IV DECREASED GLUCOSE; Start 03/20/18 at 20:30 Dextrose (D50w Syringe) 50 ml Q15M PRN IV DECREASED GLUCOSE; Start 03/20/18 at 20:30 Glucagon (Glucagen) 1 mg Q15M PRN IM DECREASED GLUCOSE; Start 03/20/18 at 20:30 Glucose (Glutose) 15 gm Q15M PRN BUCCAL DECREASED GLUCOSE; Start 03/20/18 at 20:30 Hydralazine HCl (Apresoline) 5 mg Q4H PRN IV ELEVATED BLOOD PRESSURE Last administered on 03/20/18at 21:52; Admin Dose 5 MG; Start 03/20/18 at 21:30 Donepezil HCl (Aricept) 5 mg DAILY PO Last administered on 03/25/18 10:59; Admin Dose 5 MG; Start 03/21/18 at 13:30 Miscellaneous Information Patients own medicat... BID@1016 XX Last administ ered on 03/23/18 15:31; Admin Dose 1 EA; Start 03/22/18 at 10:00 Memantine (Namenda) 10 mg DAILY PO Last administered on 03/25/18 10:59; Admin Dose 10 MG; Start 03/24/18 at 09:00 Insulin Glargine (Lantus) 12 units DAILY@0800 SC Last administered on 03/25/18 09:06; Admin Dose 12 UNITS; Start 03/24/18 at 08:00 BRENTON GAYLE Mar 25, 2018 14:27
[2018-03-25 20:00] VITALS: BP 124/59; PULSE 60; RESP 16
[2018-03-25] MEDS: ATORVASTATIN 20 MG TAB PO SCH (20:04)
[2018-03-26 02:00] VITALS: BP 135/65; PULSE 57; RESP 16
[2018-03-26] MEDS: PANTOPRAZOLE (EC) 40 MG TAB PO SCH (06:10)
[2018-03-26] MEDS: ACCU-CHEK XX SCH ×4 (07:00→21:02)
[2018-03-26 07:24] VITALS: BP 155/66; PULSE 53; RESP 16
[2018-03-26] MEDS: CITALOPRAM 20 MG TAB PO SCH (08:33)
[2018-03-26] MEDS: metFORMIN 500 MG TAB PO SCH ×2 (08:33→18:04)
[2018-03-26] MEDS: MEMANTINE 5 MG TAB PO SCH (08:34)
[2018-03-26] MEDS: DORZOLAMIDE/TIMOLOL 10 ML OPH BOTH EYES SCH ×2 (08:34→21:04)
[2018-03-26] MEDS: BRIMONIDINE 0.1% 5 ML OPH BOTH EYES SCH (08:34)
[2018-03-26] MEDS: INSULIN GLARGINE [LANTus] (100 UNITS/ML) SYG SC SCH (08:35)
[2018-03-26] MEDS: TRIAMTERENE/HCTZ (37.5/25) TAB PO SCH (09:59)
[2018-03-26] MEDS: DONEPEZIL 5 MG TAB PO SCH (10:00)
--- NOTE | 2018-03-26 10:45 | PN ---
Date/Time of Note Date/Time of Note DATE: 03/26/18 TIME: 10:43 Assessment/Plan VTE Prophylaxis Risk score (from Ns)>0 risk: 7 SCD applied (from Ns): Yes Pharmacological prophylaxis: NA/contraindicated Pharm contraindication: renal impairment Lines/Catheters IV Catheter Type (from [facility]): Saline Lock Urinary Cath still in place: No Assessment/Plan Hospital Course 1. Frequent falls likely secondary to progressive dementia -Per history it appears that falls are not associated with syncope -No evidence of infection -MRI brain shows no acute findings, volume loss is noted -Patient and refusing [facility], DC home with home health 2. Moderate to severe dementia -Patient has no formal diagnosis of dementia but based on history and progressive symptoms patient does have evidence of moderate to severe dementia -Started Namenda and Aricept during his hospitalization -Family will consider hospice in the near future 3. Urinary incontinence secondary to dementia -Urology consultation appreciated, no indication for medications at this time -Ultrasound of the kidneys shows no hydronephrosis or prostamegaly and PVR is within normal limits -Continue diapers 4. 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 Elevated troponin-stable - Not associated with chest pain - Some lateral T wave abnormalities on EKG - In the setting of CKD expect elevated trop. 6. Diabetes-sugars now improved with Lantus - Low risk of lactic acidosis... will continue home metformin -Will not DC with Lantus as patient has been eating less and anticipate his diabetes to resolve in the near future, risk of hypoglycemia is significant enough not to DC with Lantus 7. CKD III-stable 8. HTN -Have discontinued home Maxzide and Toprol, resume home losartan 9. Dyslipidemia - Cont home statin 10. PUD - Cont PPI Prophylaxis: SCDs DC planning: Awaiting [facility] placement Results 24hrs Laboratory Tests Test 03/25/18 12:46 03/25/18 17:52 03/25/18 20:03 03/26/18 08:33 Bedside Glucose 146 157 123 110 Subjective 24 Hr Interval Summary Constitutional: no complaints Exam/Review of Systems Vital Signs Vitals Vital Signs Date Temp Pulse Resp B/P (MAP) Pulse Ox O2 O2 Flow FiO2 Time Delivery Rate 03/26/18 98.2 53 16 155/66 98 Room Air 07:24 (95) Intake and Output 03/25/18 03/25/18 03/26/18 1515:00 23:00 07:00 IntakeIntake Total 840 ml OutputOutput Total 550 ml BalanceBalance 290 ml Exam Constitutional: alert Respiratory: clear to auscultation Cardiovascular: regular rate and rhythm Gastrointestinal: soft; No distended Musculoskeletal: nl extremities to inspection Medications Medications Current Medications IV Flush (NS 3 ml) 3 ml PER PROTOCOL IV ; Start 03/20/18 at 19:30 Ondansetron HCl (Zofran Inj) 4 mg Q6H PRN IV NAUSEA AND/OR VOMITING; Start 03/20/18 at 19:30 Acetaminophen (Tylenol Tab) 650 mg Q6H PRN PO PAIN LEVEL 1-3 OR FEVER; Start 03/20/18 at 19:30 Pantoprazole (Protonix Tab) 40 mg DAILY@06 PO Last administered on 03/26/18 06:10; Admin Dose 40 MG; Start 03/21/18 at 06:00 Senna (Senokot) 2 tab BID PRN PO CONSTIPATION; Start 03/20/18 at 19:30 Atorvastatin Calcium (Lipitor) 20 mg QHS PO Last administered on 03/25/18 20:04; Admin Dose 20 MG; Start 03/20/18 at 21:00 Brimonidine Tartrate (Alphagan P 0.1%) 1 drop DAILY BOTH EYES Last administered on 03/26/18 08:34; Admin Dose 1 DROP; Start 03/21/18 at 09:00 Citalopram Hydrobromide (Celexa) 20 mg DAILY PO Last administered on 03/26/18 08:33; Admin Dose 20 MG; Start 03/21/18 at 09:00 Dorzolamide/ Timolol (Cosopt) 1 drop BID BOTH EYES Last administered on 08:34; Admin Dose 1 DROP; Start 03/20/18 at 21:00 Metformin HCl (Glucophage) 1,000 mg BID WITH MEALS PO Last administered on 03/26/18 08:33; Admin Dose 1,000 MG; Start 03/21/18 at 08:00 Triamterene/HCTZ (Maxzide-25) 1 tab DAILY PO Last administered on 03/26/18 09:59; Admin Dose 1 TAB; Start 03/21/18 at 09:00 Diagnostic Test (Pha) (Accu-Chek) 1 ea AC MEALS AND BEDTIME XX Last administered on 03/26/18 07:00; Admin Dose 1 EA; Start 03/20/18 at 21:00 Miscellaneous Information 1 ea NOTE XX ; Start 03/20/18 at 20:30 Glucose (Glutose) 15 gm Q15M PRN PO DECREASED GLUCOSE; Start 03/20/18 at 20:30 Glucose (Glutose) 22.5 gm Q15M PRN PO DECREASED GLUCOSE; Start 03/20/18 at 20:30 Dextrose (D50w Syringe) 25 ml Q15M PRN IV DECREASED GLUCOSE; Start 03/20/18 at 20:30 Dextrose (D50w Syringe) 50 ml Q15M PRN IV DECREASED GLUCOSE; Start 03/20/18 at 20:30 Glucagon (Glucagen) 1 mg Q15M PRN IM DECREASED GLUCOSE; Start 03/20/18 at 20:30 Glucose (Glutose) 15 gm Q15M PRN BUCCAL DECREASED GLUCOSE; Start 03/20/18 at 20:30 Hydralazine HCl (Apresoline) 5 mg Q4H PRN IV ELEVATED BLOOD PRESSURE Last administered on 03/20/18at 21:52; Admin Dose 5 MG; Start 03/20/18 at 21:30 Donepezil HCl (Aricept) 5 mg DAILY PO Last administered on 03/26/18 10:00; Admin Dose 5 MG; Start 03/21/18 at 13:30 Miscellaneous Information Patients own medicat... BID@10,16 XX Last administered on 03/23/18 15:31; Admin Dose 1 EA; Start 03/22/18 at 10:00 Memantine (Namenda) 10 mg DAILY PO Last administered on 03/26/18 08:34; Admin Dose 10 MG; Start 03/24/18 at 09:00 Insulin Glargine (Lantus) 12 units DAILY@0800 SC Last administered on 03/26/18 08:35; Admin Dose 12 UNITS; Start 03/24/18 at 08:00 BRENTON GAYLE Mar 26, 2018 10:45
[2018-03-26 13:20] VITALS: BP 122/57; PULSE 66; RESP 16
[2018-03-26 19:27] VITALS: BP 125/60; PULSE 62; RESP 16
[2018-03-26] MEDS: ATORVASTATIN 20 MG TAB PO SCH (21:02)
[2018-03-27 02:00] VITALS: BP 107/56; PULSE 60; RESP 18
[2018-03-27] MEDS: PANTOPRAZOLE (EC) 40 MG TAB PO SCH (05:58)
[2018-03-27] MEDS: ACCU-CHEK XX SCH ×2 (07:00→11:30)
[2018-03-27 07:37] VITALS: BP 143/63; PULSE 59; RESP 16
[2018-03-27] MEDS: DORZOLAMIDE/TIMOLOL 10 ML OPH BOTH EYES SCH (08:37)
[2018-03-27] MEDS: BRIMONIDINE 0.1% 5 ML OPH BOTH EYES SCH (08:37)
[2018-03-27] MEDS: DONEPEZIL 5 MG TAB PO SCH (08:38)
[2018-03-27] MEDS: CITALOPRAM 20 MG TAB PO SCH (08:38)
[2018-03-27] MEDS: metFORMIN 500 MG TAB PO SCH (08:38)
[2018-03-27] MEDS: MEMANTINE 5 MG TAB PO SCH (08:38)
[2018-03-27] MEDS: INSULIN GLARGINE [LANTus] (100 UNITS/ML) SYG SC SCH (08:40)
[2018-03-27] MEDS ORDERED: LOSARTAN 25 MG TAB PO SCH (09:00)
[2018-03-27 13:43] VITALS: BP 120/59; PULSE 67; RESP 16
--- NOTE | 2018-03-27 15:43 | DS ---
Date/Time of Note Date/Time of Note DATE: 03/27/18 TIME: 15:33 Discharge Summary Admission/Discharge Info Admit Date/Time Mar 20, 2018 at 18:46 Discharge Date/Time March 27, 2018 Discharge Diagnosis 1. Frequent falls secondary to progressive dementia -Per history it appears that falls are not associated with syncope -No evidence of infection -MRI brain shows no acute findings, volume loss is noted -Patient and refusing senior care, DC home with home health -DC to senior care 2. Moderate to severe dementia -Patient has no formal diagnosis of dementia but based on history and progressive symptoms patient does have evidence of moderate to severe dementia -Started Namenda and Aricept during his hospitalization -Family will consider hospice in the future 3. Urinary incontinence secondary to dementia -Urology consultation appreciated, no indication for medications at this time -Ultrasound of the kidneys shows no hydronephrosis or prostamegaly and PVR is within normal limits -Continue diapers 4. 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 Elevated troponin-stable - Not associated with chest pain - Some lateral T wave abnormalities on EKG - In the setting of CKD expect elevated trop. 6. Diabetes-sugars now improved with Lantus - Low risk of lactic acidosis... will continue home metformin -DC with Lantus 12 units nightly 7. CKD III-stable 8. HTN -Allow for mildly elevated hypertension due to recurrent falls, continue losartan but DC Maxzide and Toprol 9. Dyslipidemia - Cont home statin 10. PUD -No indication for further PPI Patient Condition: Good Hospital Course Patient is an 87-year-old male with a history of progressive debility, hypertension, diabetes, depression, CKD who presents with repeated falls. MRI brain showed no acute findings but volume loss was noted. Based on history patient clearly has progressive dementia that could be classified as moderate to severe, of note patient had no no prior formal diagnosis of dementia. Patient was noted to have dysphasia as well as urinary incontinence both related to his progressive dementia. Patient has been mostly bedbound over the past several months with declining functional status and memory. Patient had no evidence of infection during this hospitalization, patient was started on Namenda and Aricept and PT did work with the patient. Patient's blood pressure regimen was changed to include only losartan, Toprol and Maxzide were discontinued to allow for mildly increased blood pressure due to recurrent falls and likely orthostatic hypotension. Patient was appropriate for senior care placement, family initially wanted to take patient home but ultimately decided on senior care placement. On the day of discharge patient's vitals, labs and physical exam are stable, patient has no acute complaints and questions are answered. Patient was recommended to continue a pure diet and was to use diapers for his urinary incontinence. Home Meds Active Scripts Memantine HCl (Memantine HCl) 5 Mg Tablet, 10 MG PO DAILY, #60 TAB Prov:JESSY GAYLEJuwan 03/24/18 Donepezil* (Aricept*) 5 Mg Tablet, 5 MG PO DAILY, #60 TAB Prov:JESSY GAYLEJuwan 03/24/18 Reported Medications Triamcinolone Acetonide* (Kenalog*) 0.1%-15GM Cr, 1 APPLIC TOP BID, #1 TUB 03/20/18 Pantoprazole* (Pantoprazole*) 40 Mg Tablet.dr, 40 MG PO AC BREAKFAST, TAB 03/20/18 Metformin* (Glucophage*) 1,000 Mg Tablet, 1000 MG PO BID, #60 TAB 03/20/18 Losartan Potassium* (Losartan Potassium*) 25 Mg Tablet, 25 MG PO DAILY, TAB 03/20/18 Ibuprofen* (Ibuprofen*) 600 Mg Tablet, 600 MG PO Q8 PRN for PAIN, TAB 03/20/18 Guaifenesin-Codeine Phosphate* (Guaifenesin* AC Cough Syrup) 473 Ml Liquid, 5-10 ML PO Q4H PRN for COUGH, ML 03/20/18 Exenatide (Byetta) 10 Mcg/0.04 Ml Pen.injctr, 10 MCG SC BID 03/20/18 Escitalopram Oxalate* (Lexapro*) 10 Mg Tablet, 10 MG PO DAILY, #30 TAB 03/20/18 Dorzolamide/Timolol* (Dorzolamide/Timolol*) 10 Ml Drops, 1 DROP BOTH EYES BID, #1 EA 03/20/18 Citalopram Hydrobromide* (Citalopram Hydrobromide*) 20 Mg Tablet, 20 MG PO DAILY, #30 TAB 03/20/18 Brimonidine Tartrate* (Alphagan P*) 0.1%-15 Ml Opht Drops, 1 DROP BOTH EYES DAILY, #1 EA 03/20/18 Atorvastatin Calcium* (Atorvastatin Calcium*) 20 Mg Tablet, 20 MG PO QHS, #30 TAB 03/20/18 Discontinued Reported Medications Triamterene/Hctz* (Maxzide (37.5-25)*) 1 Each Tablet, 1 EACH PO DAILY, #30 TAB 03/20/18 Metoprolol Succinate* (Toprol XL*) 100 Mg Tab.sr.24h, 100 MG PO DAILY, #30 TAB 03/20/18 Follow-up Plan Follow-up with physicians at the [facility] facility Primary Care Provider Not On Staff Doctor Time spent on discharge: > 30 minutes BRENTON GAYLE Mar 27, 2018 15:43
== END 2018-03-27 15:00 | DRG 884 ==
LOC: E/R 16:02 → 6WM 18:46 → 2NE 03-24 23:32
PROVIDERS: ADMIT Internal Medicine; ATTEND Internal Medicine
DX: F03.90 Unspecified dementia, unspecified severity, without behavioral disturbance, psychotic disturbance, mood disturbance, and anxiety (principal); I12.9 Hypertensive chronic kidney disease with stage 1 through stage 4 chronic kidney disease, or unspecified chronic kidney disease; E11.22 Type 2 diabetes mellitus with diabetic chronic kidney disease; N18.3 Chronic kidney disease, stage 3 (moderate); N39.41 Urge incontinence; Z86.73 Personal history of transient ischemic attack (TIA), and cerebral infarction without residual deficits; Z91.81 History of falling; R32 Unspecified urinary incontinence; R13.10 Dysphagia, unspecified
CPT/HCPCS: 70450; 70553; 71045; 72125; 74230; 76775; 80048; 80053; 80061; 80307; 81001; 82962; 83036; 83540; 83735; 84100; 84443; 84484; 85025; 85610; 85730; 86850; 86900; 86901; 92610; 92611; 93005; 97116; 97161; 97530; J0360; J1815